=== PATIENT | male | born 1990 | race Two or more races ===

== ENCOUNTER 2018-09-04 17:26 | Emergency (ER) | payer OTHER ==
--- NOTE | 2018-09-04 17:36 | EDM.PDOC ---
ED HPI GENERAL MEDICAL PROBLEM - General Chief Complaint: Laceration Stated Complaint: LEFT MIDDLE FINGER CUT Time Seen by Provider: 09/04/18 17:35 Source of Information: Reports: Patient History Limitations: Reports: No Limitations - History of Present Illness INITIAL COMMENTS - FREE TEXT/NARRATIVE: HISTORY AND PHYSICAL: History of present illness: Patient is a 28-year-old male who presents to the emergency room with complaints of a laceration/avulsion of the distal tip of the left third digit. He states he was cutting meat when the knife had grazed the distal aspect of the fingertip. 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 His tetanus is up-to-date. Patient does speak Nauruan - does not require JONATHAN services. Review of systems: As per history of present illness and below otherwise all systems reviewed and negative. Past medical history: As per history of present illness and as reviewed below otherwise noncontributory. Surgical history: As per history of present illness and as reviewed below otherwise noncontributory. Social history: See social history for further information Family history: As per history of present illness and as reviewed below otherwise noncontributory. Physical exam: General: Well-developed and well-nourished 28-year-old male. Alert and oriented. Nontoxic appearing and in no acute distress. HEENT: Atraumatic, normocephalic, pupils equal and reactive bilaterally, negative for conjunctival pallor or scleral icterus, mucous membranes moist, TMs normal bilaterally, throat clear, neck supple, nontender, trachea midline. No drooling or trismus noted. No meningeal signs. No hot potato voice noted. Lungs: Clear to auscultation, breath sounds equal bilaterally, chest nontender. Heart: S1S2, regular rate and rhythm without overt murmur Abdomen: Soft, nondistended, nontender. Negative for masses or hepatosplenomegaly. Negative for costovertebral tenderness. Pelvis: Stable nontender. Genitourinary: Deferred. Rectal: Deferred. Skin: Distal tip of the left 3rd digit is avulsed (.75cm in diameter). This involves the upper 1/3 corner of the nail bed and soft tissue. No exposed bone noted. Bleeding controlled with pressure. Otherwise skin is intact, warm, dry. No lesions or rashes noted. Extremities: Moves all extremities per self with difficulty or deficits, negative for cords or calf pain. Neurovascular unremarkable. Neuro: Awake, alert, oriented. Cranial nerves II through XII unremarkable. Cerebellum unremarkable. Motor and sensory unremarkable throughout. Exam nonfocal. Notes: X-ray shows distal long finger soft tissue injury. Nondisplaced acute fracture of the distal phalanx tuft. 1% lidocaine was used to perform a digital block. Finger was thoroughly cleansed with chlorhexidine and wound wash. Pressure xoforam dressing applied with education. Patient instructed to call the hand surgeon on Thursday to set up a follow-up appointment. Supportive care measures were reviewed and discussed. Voices understanding and is agreeable to plan of care. Denies any further questions or concerns at this time. Diagnostics: X-ray Therapeutics: 1% Lidocaine Prescription: [place] Keflex Impression: Tuft Fracture, left third digit Skin Avulsion, left third digit Plan: 1. Take the antibiotic as directed. Keep the dressing you have on for the next 24-48 hours. Keep the area clean and dry. Continue to monitor for signs of infection. 2. Tylenol and/or ibuprofen as needed for pain management. [place] for moderate to severe pain. This medication may cause drowsiness a do not take it will driving her needing to be functioning outside of the house. 3. Please follow-up with your primary care provider or Hand Surgeon (Dr Corley) as we discussed. Return to the ED as needed and as discussed. Definitive disposition and diagnosis as appropriate pending reevaluation and review of above. Onset: Today Left Finger-Middle Pain Score (Numeric/FACES): 8 - Related Data Allergies Allergy/AdvReac Type Severity Reaction Status Date / Time No Known Allergies Allergy Verified 09/04/18 18:03 Home Meds: Home Meds . [No Known Home Meds] 09/04/18 [History] ED ROS GENERAL - Review of Systems Review Of Systems: ROS reveals no pertinent complaints other than HPI. ED EXAM, SKIN/RASH Exam: See Below (See dictation) Course - Vital Signs Last Recorded V/S: Last Vital Signs Temp 97.6 F 09/04/18 18:04 Pulse 88 09/04/18 18:04 Resp 17 09/04/18 18:04 BP 129/79 09/04/18 18:04 Pulse Ox 98 09/04/18 18:04 - Orders/Labs/Meds Meds: Medications Discontinued Medications Generic Name Dose Route Start Last Admin Trade Name Angela PRN Reason Stop Dose Admin Lidocaine HCl 5 ml 09/04/18 17:35 09/04/18 18:22 Xylocaine-Mpf 1% INJECT 09/04/18 17:36 5 ml ONETIME ONE Administration Departure - Departure Time of Disposition: 18:49 Disposition: Home, Self-Care 01 Clinical Impression: Avulsion fracture, Open fracture of tuft of distal phalanx of finger - Discharge Information Forms: ED Department Discharge Additional Instructions: The following information is given to patients seen in the emergency department who are being discharged to home. This information is to outline your options for follow-up care. We provide all patients seen in our emergency department with a follow-up referral. The need for follow-up, as well as the timing and circumstances, are variable depending upon the specifics of your emergency department visit. If you don't have a primary care physician on staff, we will provide you with a referral. We always advise you to contact your personal physician following an emergency department visit to inform them of the circumstance of the visit and for follow-up with them and/or the need for any referrals to a consulting specialist. The emergency department will also refer you to a specialist when appropriate. This referral assures that you have the opportunity for follow-up care with a specialist. All of these measure are taken in an effort to provide you with optimal care, which includes your follow-up. Under all circumstances we always encourage you to contact your private physician who remains a resource for coordinating your care. When calling for follow-up care, please make the office aware that this follow-up is from your recent emergency room visit. If for any reason you are refused follow-up, please contact the [facility] at and asked to speak to the emergency department charge nurse. [facility] [address] [place] [id number] [facility] [address] [place] [address] 1. Take the antibiotic as directed. Keep the dressing you have on for the next 24-48 hours. Keep the area clean and dry. Continue to monitor for signs of infection. 2. Tylenol and/or ibuprofen as needed for pain management. [place] for moderate to severe pain. This medication may cause drowsiness a do not take it will driving her needing to be functioning outside of the house. 3. Please follow-up with your primary care provider or Hand Surgeon (Dr Corley) as we discussed. Return to the ED as needed and as discussed.
--- NOTE | 2018-09-04 18:43 | CR ---
HISTORY: Caught 3rd digit. TECHNIQUE: Left hand 3 views. COMPARISON: None. FINDINGS: Nondisplaced acute oblique fracture of the tuft of the long finger distal phalanx. Contour deformity of the soft tissues in the distal long finger compatible with soft tissue injury. No radiopaque foreign body. Bones are otherwise intact. Joint spaces are maintained. IMPRESSION: Distal long finger soft tissue injury. Nondisplaced acute fracture of the long finger distal phalanx tuft. Dictated by James Bro MD @ Sep 04 2018 6:39PM Signed by Dr. James Bro @ Sep 04 2018 6:41PM
== END 2018-09-04 19:05 | disposition home or self-care (01) ==
LOC: MW.ED 17:26
DX: S62.632B Displaced fracture of distal phalanx of right middle finger, initial encounter for open fracture (principal); W26.0XXA Contact with knife, initial encounter
CPT/HCPCS: 64450; 73140; 99283; J2001

== ENCOUNTER 2019-07-04 23:52 | Observation (INO) | payer SELFPAY ==
[2019-07-05] MEDS ORDERED: Albuterol/Ipratropium 3.0-0.5 MG/3 ML Neb Soln NEB ONE ×2 (00:17→01:23)
[2019-07-05] MEDS ORDERED: methylPREDNISolone Sodium Succinate 125 MG/2 ML SDV IVPUSH ONE (00:17)
[2019-07-05] MEDS ORDERED: Sodium Chloride 0.9% 2.5 ML Syringe FLUSH PRN (00:17)
[2019-07-05] MEDS ORDERED: Ketorolac 30 MG/ML SDV IVPUSH ONE (00:17)
[2019-07-05] MEDS ORDERED: Sodium Chloride 0.9% 10 ML Syringe FLUSH PRN (00:17)
[2019-07-05] MEDS ORDERED: Sodium Chloride 0.9% 1,000 ML IV ONE (00:17)
[2019-07-05] MEDS ORDERED: Albuterol/Ipratropium 3.0-0.5 MG/3 ML Neb Soln ONE (00:18)
--- NOTE | 2019-07-05 00:25 | EDM.PDOC ---
ED HPI GENERAL MEDICAL PROBLEM - General Chief Complaint: Chest Pain Stated Complaint: HARD TIME BREATHING Time Seen by Provider: 07/05/19 00:16 - History of Present Illness INITIAL COMMENTS - FREE TEXT/NARRATIVE: HISTORY AND PHYSICAL: History of present illness: The patient is a 29-year-old male with no significant pulmonary or cardiac history who presents with 3 days of hacking dry cough occasionally productive of phlegm sore throat and trouble breathing. The patient does smoke but does not use any drugs and says he did not get his influenza shot this year. He has been eating and drinking but less today due to the trouble breathing and has not had any abdominal pain vomiting or diarrhea. He has not noted a fever at home. He has diffuse chest pain that is worse with coughing and a sore throat started after the coughing as well. The patient has not tried much over-the- counter. 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 He has no abdominal pain flank pain or urinary symptoms. Review of systems: As per history of present illness and below otherwise all systems reviewed and negative. Past medical history: As per history of present illness and as reviewed below otherwise noncontributory. Surgical history: As per history of present illness and as reviewed below otherwise noncontributory. Social history: No reported history of drug or alcohol abuse. Family history: As per history of present illness and as reviewed below otherwise noncontributory. Physical exam: Well-developed well-nourished mildly overweight man who has a dry hacking cough on my evaluation and is slightly breathless but is not hoarse or muffled. Vital signs are noted by me HEENT: Atraumatic, normocephalic, pupils reactive, negative for conjunctival pallor or scleral icterus, mucous membranes moist, throat clear of exudates and there is some slight oropharyngeal erythema, uvula is midline, there is no cervical adenopathy or nuchal rigidity, neck supple, nontender, trachea midline. Lungs: Diffuse expiratory wheezing and coarse breath sounds bilaterally with diminished air exchange in the bases and no overt work of breathing or abdominal muscle use, no stridor, breath sounds equal bilaterally, chest nontender. Heart: S1S2, regular, rhythm but tachycardic rate and no overt murmurs Abdomen: Soft, nondistended, nontender. Negative for masses or hepatosplenomegaly. Negative for costovertebral tenderness. Pelvis: Stable nontender. Genitourinary: Deferred. Rectal: Deferred. Extremities: Atraumatic, negative for cords or calf pain. Neurovascular unremarkable. No pedal edema or leg asymmetry Neuro: Awake, alert, oriented. Cranial nerves II through XII unremarkable. Cerebellum unremarkable. Motor and sensory unremarkable throughout. Exam nonfocal. Diagnostics: EKG chest x-ray influenza rapid strep CBC CMP lactic acid Therapeutics: IV O2 monitor IV fluids Solu-Medrol DuoNeb Toradol rocephin Zithromax Please note that the lactic acid machine has been having troubles and I have not currently received that test result. Lab has said that if they can get the machine working properly they will come and draw the patient. Dr. Hudson is aware of this and I have discussed the case with him at 1:14 AM. He is aware of my concerns and accepts the patient for admission. The patient is also aware of his testing results and the need for admission. Impression: Bronchospasm with hypoxia Definitive disposition and diagnosis as appropriate pending reevaluation and review of above. chest Pain Score (Numeric/FACES): 7 - Related Data Allergies Allergy/AdvReac Type Severity Reaction Status Date / Time No Known Allergies Allergy Verified 07/05/19 00:04 Home Meds: Home Meds . [No Known Home Meds] 09/04/18 [History] Past Medical History - Past Health History Medical/Surgical History: Denies Medical/Surgical History - Infectious Disease History Infectious Disease History: Reports: Mumps Social & Family History - Family History Family Medical History: Noncontributory - Tobacco Use Smoking Status *Q: Current Every Day Smoker Years of Tobacco use: 14 Packs/Tins Daily: 0.5 - Caffeine Use Caffeine Use: Reports: Energy Drinks - Recreational Drug Use Recreational Drug Use: No ED ROS GENERAL - Review of Systems Review Of Systems: Comprehensive ROS is negative, except as noted in HPI. ED EXAM, GENERAL - Physical Exam Exam: See Below (See dictation) Course - Vital Signs Last Recorded V/S: Last Vital Signs Temp 37.0 C 07/04/19 23:54 Pulse 113 H 07/04/19 23:54 Resp 20 07/04/19 23:54 BP 149/99 H 07/04/19 23:54 Pulse Ox 94 L 07/05/19 00:32 - Orders/Labs/Meds Orders: Active Orders 24 hr Category Date Time Status Patient Status [ADT] Stat ADT 07/05/19 01:18 Ordered Cardiac Monitoring [RC] . DIRECTED Care 07/05/19 00:17 Active EKG Documentation Completion [RC] STAT Care 07/05/19 00:17 Active Oxygen Therapy, ED [RC] ASDIRECTED Care 07/05/19 00:17 Active Pulse Oximetry [RC] ASDIRECTED Care 07/05/19 00:17 Active RT Aerosol Therapy [RC] ASDIRECTED Care 07/05/19 00:18 Active CULTURE STREP A CONFIRMATION [RM] Stat Lab 07/05/19 00:29 Results LACTATE WITH REFLEX [BG] Stat Lab 07/05/19 00:17 Ordered STREP SCRN A RAPID W CULT CONF [RM] Stat Lab 07/05/19 00:29 Results Sodium Chloride 0.9% [Saline Flush] Med 07/05/19 00:17 Active 10 ml FLUSH ASDIRECTED PRN Sodium Chloride 0.9% [Saline Flush] Med 07/05/19 00:17 Active 2.5 ml FLUSH ASDIRECTED PRN cefTRIAXone [Rocephin in Dextrose,Iso-Osm 2 GM/50 ML] 2 Med 07/05/19 01:04 Active gm Premix Bag 1 bag IV ONETIME Saline Lock Insert [OM.PC] Stat Oth 07/05/19 00:17 Ordered Medication Orders Ceftriaxone Sodium/Dextrose 2 (gm/ Premix) 50 mls @ 100 mls/hr IV ONETIME ONE Stop: 07/05/19 01:33 Sodium Chloride (Saline Flush) 10 ml FLUSH ASDIRECTED PRN PRN Reason: Keep Vein Open Sodium Chloride (Saline Flush) 2.5 ml FLUSH ASDIRECTED PRN PRN Reason: Keep Vein Open Labs: Laboratory Tests 07/04/19 07/04/19 Range/Units 23:58 23:58 WBC 16.77 H (4.0-11.0) K/uL RBC 5.75 (4.50-5.90) M/uL Hgb 17.3 H (13.0-17.0) g/dL Hct 49.3 (38.0-50.0) % MCV 85.7 (80.0-98.0) fL MCH 30.1 (27.0-32.0) pg MCHC 35.1 (31.0-37.0) g/dL RDW Std Deviation 40.9 (28.0-62.0) fl RDW Coeff of Yamilet 13 (11.0-15.0) % Plt Count 315 (150-400) K/uL MPV 9.50 (7.40-12.00) fL Neut % (Auto) 68.9 (48.0-80.0) % Lymph % (Auto) 19.9 (16.0-40.0) % Ross % (Auto) 4.9 (0.0-15.0) % Eos % (Auto) 6.1 (0.0-7.0) % Baso % (Auto) 0.2 (0.0-1.5) % Neut # (Auto) 11.6 H (1.4-5.7) K/uL Lymph # (Auto) 3.3 H (0.6-2.4) K/uL Ross # (Auto) 0.8 (0.0-0.8) K/uL Eos # (Auto) 1.0 H (0.0-0.7) K/uL Baso # (Auto) 0.0 (0.0-0.1) K/uL Nucleated RBC % 0.0 /100WBC Nucleated RBCs # 0 K/uL Sodium 144 (136-148) mmol/L Potassium 3.4 L (3.5-5.1) mmol/L Chloride 105 (98-107) mmol/L Carbon Dioxide 27.0 (21.0-32.0) mmol/L BUN 21 H (7.0-18.0) mg/dL Creatinine 0.9 (0.8-1.3) mg/dL Est Cr Clr Drug Dosing 120.70 mL/min Estimated GFR (MDRD) > 60.0 ml/min Glucose 109 H (74-106) mg/dL Calcium 9.0 (8.5-10.1) mg/dL Total Bilirubin 0.5 (0.2-1.0) mg/dL AST 21 (15-37) IU/L ALT 67 H (14-63) IU/L Alkaline Phosphatase 84 (46-116) U/L Total Protein 8.3 H (6.4-8.2) g/dL Albumin 4.2 (3.4-5.0) g/dL Globulin 4.1 H (2.6-4.0) g/dL Albumin/Globulin Ratio 1.0 (0.9-1.6) Meds: Medications Generic Name Dose Route Start Last Admin Trade Name Freq PRN Reason Stop Dose Admin Ceftriaxone Sodium/Dextrose 2 50 mls @ 100 mls/hr 07/05/19 01:04 gm/ Premix IV 07/05/19 01:33 ONETIME ONE Sodium Chloride 10 ml 07/05/19 00:17 Saline Flush FLUSH ASDIRECTED PRN Keep Vein Open Sodium Chloride 2.5 ml 07/05/19 00:17 Saline Flush FLUSH ASDIRECTED PRN Keep Vein Open Discontinued Medications Generic Name Dose Route Start Last Admin Trade Name Freq PRN Reason Stop Dose Admin Albuterol/Ipratropium 3 ml 07/05/19 00:17 07/05/19 00:21 Duoneb 3.0-0.5 Mg/3 Ml NEB 07/05/19 00:18 3 ml ONETIME ONE Administration Albuterol/Ipratropium Confirm 07/05/19 00:18 07/05/19 00:30 Duoneb 3.0-0.5 Mg/3 Ml Administered 07/05/19 00:19 Not Given Dose 3 ml .ROUTE .STK-MED ONE Azithromycin 500 mg 07/05/19 01:05 Zithromax PO 07/05/19 01:06 ONETIME ONE Sodium Chloride 1,000 mls @ 999 mls/hr 07/05/19 00:17 07/05/19 00:21 Normal Saline IV 07/05/19 01:17 999 mls/hr STAT ONE Administration Ketorolac Tromethamine 30 mg 07/05/19 00:17 07/05/19 00:26 Toradol IVPUSH 07/05/19 00:18 30 mg ONETIME ONE Administration Methylprednisolone Sodium Succinate 125 mg 07/05/19 00:17 07/05/19 00:26 Solu-Medrol IVPUSH 07/05/19 00:18 125 mg ONETIME ONE Administration Departure - Departure Time of Disposition: :20 Disposition: Refer to Observation Condition: Fair Clinical Impression: Bronchospasm, acute, Hypoxia - Discharge Information Referrals: PCP,Unknown [Primary Care Provider] - Forms: ED Department Discharge Sepsis Event Note - Evaluation Sepsis Screening Result: No Definite Risk - Focused Exam Vital Signs: Vital Signs Temp Pulse Resp BP Pulse Ox Pulse Ox 07/05/19 00:32 94 L 07/04/19 23:54 37.0 C 113 H 20 149/99 H 92 L Date Exam was Performed: 07/05/19 Time Exam was Performed: 01:19 - My Orders Last 24 Hours: My Active Orders 07/05/19 00:17 Cardiac Monitoring [RC] . DIRECTED EKG Documentation Completion [RC] STAT Oxygen Therapy, ED [RC] ASDIRECTED Pulse Oximetry [RC] ASDIRECTED LACTATE WITH REFLEX [BG] Stat Sodium Chloride 0.9% [Saline Flush] 10 ml FLUSH ASDIRECTED PRN Sodium Chloride 0.9% [Saline Flush] 2.5 ml FLUSH ASDIRECTED PRN Saline Lock Insert [OM.PC] Stat 07/05/19 00:18 RT Aerosol Therapy [RC] ASDIRECTED 07/05/19 00:29 CULTURE STREP A CONFIRMATION [RM] Stat STREP SCRN A RAPID W CULT CONF [RM] Stat 07/05/19 01:04 cefTRIAXone [Rocephin in Dextrose,Iso-Osm 2 GM/50 ML] 2 gm Premix Bag 1 bag IV ONETIME 07/05/19 01:18 Patient Status [ADT] Stat - Assessment/Plan Last 24 Hours: My Active Orders 07/05/19 00:17 Cardiac Monitoring [RC] . DIRECTED EKG Documentation Completion [RC] STAT Oxygen Therapy, ED [RC] ASDIRECTED Pulse Oximetry [RC] ASDIRECTED LACTATE WITH REFLEX [BG] Stat Sodium Chloride 0.9% [Saline Flush] 10 ml FLUSH ASDIRECTED PRN Sodium Chloride 0.9% [Saline Flush] 2.5 ml FLUSH ASDIRECTED PRN Saline Lock Insert [OM.PC] Stat 07/05/19 00:18 RT Aerosol Therapy [RC] ASDIRECTED 07/05/19 00:29 CULTURE STREP A CONFIRMATION [RM] Stat STREP SCRN A RAPID W CULT CONF [RM] Stat 07/05/19 01:04 cefTRIAXone [Rocephin in Dextrose,Iso-Osm 2 GM/50 ML] 2 gm Premix Bag 1 bag IV ONETIME 07/05/19 01:18 Patient Status [ADT] Stat
--- NOTE | 2019-07-05 01:00 | CR ---
INDICATION: chest pain. CHEST, PA AND LATERAL Upright PA and lateral radiographs of the chest were performed. Comparison: No previous studies are currently available for comparison. The lungs appear clear and there are no pleural effusions. Heart size and pulmonary vasculature appear normal. Visualized bones show no significant findings. IMPRESSION: No acute intrathoracic abnormality identified. DENISE MUNOZ MD [facility] Dictated by: Fede Munoz MD @ 07/05/2019 00:58:49 (Electronically Signed)
[2019-07-05 01:01] LABS: BLOOD UREA NITROGEN,BUN 21 mg/dL (7.0-18.0); CHLORIDE,CL 105 mmol/L (98-107); GLUCOSE RANDOM 109 mg/dL (74-106); POTASSIUM,K 3.4 mmol/L (3.5-5.1); SODIUM,NA 144 mmol/L (136-148)
[2019-07-05] MEDS ORDERED: cefTRIAXone 2 GM in Premix Bag 1 BAG IV ONE (01:04)
[2019-07-05] MEDS ORDERED: Azithromycin 250 MG Tab PO ONE (01:05)
[2019-07-05] MEDS ORDERED: Albuterol/Ipratropium 3.0-0.5 MG/3 ML Neb Soln NEB PRN (03:59)
[2019-07-05 07:05] LABS: BLOOD UREA NITROGEN,BUN 19 mg/dL (7.0-18.0); CARBON DIOXIDE,CO2 25.2 mmol/L (21.0-32.0); CHLORIDE,CL 106 mmol/L (98-107); GLUCOSE RANDOM 150 mg/dL (74-106); POTASSIUM,K 4.6 mmol/L (3.5-5.1); SODIUM,NA 142 mmol/L (136-148)
[2019-07-05] MEDS ORDERED: predniSONE 20 MG Tab PO SCH (08:00)
--- NOTE | 2019-07-05 09:08 | PCM.HP.2 ---
H&P History of Present Illness - General Date of Service: 07/05/19 Admit Problem/Dx: Admission Diagnosis/Problem Admission Diagnosis/Problem Bronchospasm - History of Present Illness Initial Comments - Free Text/Narative: THe patient is a 29 year old male who denies PMH who presented to the ER with several day history of dry cough, sore throat, shortness of breath. He reports intermittently the cough is productive. Feels like his congestion is draining down the back of his throat and he is coughing that up. Chest hurts with coughing. Subjective fevers at home. Taking ibuprofen at home. Denies hx of asthma. Smokes 2 cigarettes a day but denies vaping. In the ER, work up showed leukocytosis of 16, lactate wnl, CMP wnl, flu negative , strep negative, CXR negative. No documented hypoxia in chart but placed on 2 L of oxygen in the ER. Given Duonebs, solumedrol, Rocephin, Azithromycin, and Toradol. This morning states he feels a little better, congestion clearing up and it is easier for him to breath. Was weaned off oxygen and satting well on room air. PCP- none chest Pain Score (Numeric/FACES): 2 - Related Data Allergies/Adverse Reactions: Allergies Allergy/AdvReac Type Severity Reaction Status Date / Time No Known Allergies Allergy Verified 07/05/19 06:25 Home Medications: Home Meds . [No Known Home Meds] 09/04/18 [History] Past Medical History - Past Health History Medical/Surgical History: Denies Medical/Surgical History - Infectious Disease History Infectious Disease History: Reports: Mumps Social & Family History - Family History Family Medical History: Noncontributory - Tobacco Use Smoking Status *Q: Current Some Day Smoker Years of Tobacco use: 10 Packs/Tins Daily: 0 Tobacco Use Comment: only smokes a couple cigarettes socially, not every day or even every week Second Hand Smoke Exposure: No - Caffeine Use Caffeine Use: Reports: Coffee - Alcohol Use Days Per Week of Alcohol Use: 0 - Recreational Drug Use Recreational Drug Use: No H&P Review of Systems - Review of Systems: Review Of Systems: See Below General: Reports: Fever HEENT: Reports: Post Nasal Drip, Sinus Congestion, Sore Throat Pulmonary: Reports: Shortness of Breath, Cough Cardiovascular: Reports: Chest Pain (with coughing) Gastrointestinal: Reports: No Symptoms Genitourinary: Reports: No Symptoms Musculoskeletal: Reports: No Symptoms Skin: Reports: No Symptoms Psychiatric: Reports: No Symptoms Neurological: Reports: No Symptoms Hematologic/Lymphatic: Reports: No Symptoms Immunologic: Reports: No Symptoms Exam - Exam Exam: See Below - Vital Signs Vital Signs: Last Vital Signs Temp 97.3 F 07/05/19 07:29 Pulse 77 07/05/19 07:29 Resp 18 07/05/19 07:29 BP 121/58 L 07/05/19 07:29 Pulse Ox 95 07/05/19 07:29 Weight: 98.883 kg - Exam Quality Assessment: No: Supplemental Oxygen General: Alert, Oriented, Cooperative HEENT: Conjunctiva Clear, EOMI, Mucosa Moist & [place], Posterior Pharynx Clear, Pupils Equal, Pupils Reactive Lungs: Normal Respiratory Effort, Wheezing Cardiovascular: Regular Rate, Regular Rhythm GI/Abdominal Exam: Normal Bowel Sounds, Soft, Non-Tender, No Distention Extremities: No Pedal Edema Skin: Warm, Dry, Intact Psychiatric: Alert, Normal Affect, Normal Mood - Patient Data Lab Results Last 24 hrs: Laboratory Results - last 24 hr 07/04/19 07/04/19 07/05/19 Range/Units 23:58 23:58 01:21 WBC 16.77 H (4.0-11.0) K/uL RBC 5.75 (4.50-5.90) M/uL Hgb 17.3 H (13.0-17.0) g/dL Hct 49.3 (38.0-50.0) % MCV 85.7 (80.0-98.0) fL MCH 30.1 (27.0-32.0) pg MCHC 35.1 (31.0-37.0) g/dL RDW Std Deviation 40.9 (28.0-62.0) fl RDW Coeff of [place]ilet 13 (11.0-15.0) % Plt Count 315 (150-400) K/uL MPV 9.50 (7.40-12.00) fL Neut % (Auto) 68.9 (48.0-80.0) % Lymph % (Auto) 19.9 (16.0-40.0) % [place] % (Auto) 4.9 (0.0-15.0) % Eos % (Auto) 6.1 (0.0-7.0) % Baso % (Auto) 0.2 (0.0-1.5) % Neut # (Auto) 11.6 H (1.4-5.7) K/uL Lymph # (Auto) 3.3 H (0.6-2.4) K/uL [place] # (Auto) 0.8 (0.0-0.8) K/uL Eos # (Auto) 1.0 H (0.0-0.7) K/uL Baso # (Auto) 0.0 (0.0-0.1) K/uL Nucleated RBC % 0.0 /100WBC Nucleated RBCs # 0 K/uL Lactate 1.2 (0.20-2.00) mmol/L Sodium 144 (136-148) mmol/L Potassium 3.4 L (3.5-5.1) mmol/L Chloride 105 (98-107) mmol/L Carbon Dioxide 27.0 (21.0-32.0) mmol/L BUN 21 H (7.0-18.0) mg/dL Creatinine 0.9 (0.8-1.3) mg/dL Est Cr Clr Drug Dosing 120.70 mL/min Estimated GFR (MDRD) > 60.0 ml/min Glucose 109 H (74-106) mg/dL Calcium 9.0 (8.5-10.1) mg/dL Total Bilirubin 0.5 (0.2-1.0) mg/dL AST 21 (15-37) IU/L ALT 67 H (14-63) IU/L Alkaline Phosphatase 84 (46-116) U/L Total Protein 8.3 H (6.4-8.2) g/dL Albumin 4.2 (3.4-5.0) g/dL Globulin 4.1 H (2.6-4.0) g/dL Albumin/Globulin Ratio 1.0 (0.9-1.6) 07/05/19 07/05/19 Range/Units 06:27 06:27 WBC 14.30 H (4.0-11.0) K/uL RBC 5.33 (4.50-5.90) M/uL Hgb 15.6 (13.0-17.0) g/dL Hct 45.8 (38.0-50.0) % MCV 85.9 (80.0-98.0) fL MCH 29.3 (27.0-32.0) pg MCHC 34.1 (31.0-37.0) g/dL RDW Std Deviation 40.9 (28.0-62.0) fl RDW Coeff of Yamilet 13 (11.0-15.0) % Plt Count 304 (150-400) K/uL MPV 9.70 (7.40-12.00) fL Neut % (Auto) 93.8 H (48.0-80.0) % Lymph % (Auto) 5.0 L (16.0-40.0) % [place] % (Auto) 1.0 (0.0-15.0) % Eos % (Auto) 0.1 (0.0-7.0) % Baso % (Auto) 0.1 (0.0-1.5) % Neut # (Auto) 13.4 H (1.4-5.7) K/uL Lymph # (Auto) 0.7 (0.6-2.4) K/uL [place] # (Auto) 0.1 (0.0-0.8) K/uL Eos # (Auto) 0.0 (0.0-0.7) K/uL Baso # (Auto) 0.0 (0.0-0.1) K/uL Nucleated RBC % 0.0 /100WBC Nucleated RBCs # 0 K/uL Lactate (0.20-2.00) mmol/L Sodium 142 (136-148) mmol/L Potassium 4.6 (3.5-5.1) mmol/L Chloride 106 (98-107) mmol/L Carbon Dioxide 25.2 (21.0-32.0) mmol/L BUN 19 H (7.0-18.0) mg/dL Creatinine 0.9 (0.8-1.3) mg/dL Est Cr Clr Drug Dosing 121.11 mL/min Estimated GFR (MDRD) > 60.0 ml/min Glucose 150 H (74-106) mg/dL Calcium 9.0 (8.5-10.1) mg/dL Total Bilirubin (0.2-1.0) mg/dL AST (15-37) IU/L ALT (14-63) IU/L Alkaline Phosphatase (46-116) U/L Total Protein (6.4-8.2) g/dL Albumin (3.4-5.0) g/dL Globulin (2.6-4.0) g/dL Albumin/Globulin Ratio (0.9-1.6) Result Diagrams: 07/05/19 06:27 07/05/19 06:27 Robbin Results Last 24 hrs: Microbiology 07/05/19 00:29 Influenza Type A Antigen Screen - Final Nasopharyngeal Swab NEGATIVE INFLUENZA A VIRUS AG REFERENCE RANGE: NEGATIVE Influenza Type B Antigen Screen - Final NEGATIVE INFLUENZA B VIRUS AG REFERENCE RANGE: NEGATIVE 07/05/19 00:29 Group A Streptococcus Rapid Screen - Final Throat NEGATIVE STREP A SCREEN REFERENCE RANGE: NEGATIVE Sepsis Event Note - Evaluation Sepsis Screening Result: No Definite Risk - Focused Exam Vital Signs: Vital Signs Temp Temp Pulse Resp BP Pulse Ox Pulse Ox 07/05/19 07:29 97.3 F 77 18 121/58 L 95 07/05/19 03:57 97 07/05/19 03:45 96.6 F 79 16 118/73 97 07/05/19 03:14 98.1 F 80 18 107/62 93 L 07/05/19 02:46 82 16 93 L 07/05/19 02:05 91 18 127/78 93 L 07/05/19 01:52 109 H 22 H 119/80 94 L 07/05/19 01:00 110 H 24 H 121/78 95 07/05/19 00:32 07/04/19 23:54 98.6 F 113 H 20 149/99 H 92 L Pulse Ox 07/05/19 07:29 07/05/19 03:57 07/05/19 03:45 07/05/19 03:14 07/05/19 02:46 07/05/19 02:05 07/05/19 01:52 07/05/19 01:00 07/05/19 00:32 94 L 07/04/19 23:54 Date Exam was Performed: 07/05/19 Time Exam was Performed: 10:32 Problem List Initiated/Reviewed/Updated: Yes Orders Last 24hrs: Active Orders 24 hr Category Date Time Status Patient Status [ADT] Stat ADT 07/05/19 01:18 Active Antiembolic Devices [RC] PER UNIT ROUTINE Care 07/05/19 04:00 Active Cardiac Monitoring [RC] . DIRECTED Care 07/05/19 00:17 Active Oxygen Therapy [RC] PRN Care 07/05/19 03:57 Active RT Aerosol Therapy [RC] ASDIRECTED Care 07/05/19 04:00 Active VTE/DVT Education [RC] PER UNIT ROUTINE Care 07/05/19 03:57 Active Vital Signs [RC] Q4H Care 07/05/19 03:57 Active Regular Diet [DIET] Diet 07/05/19 Breakfast Active CULTURE STREP A CONFIRMATION [] Stat Lab 07/05/19 00:29 Results STREP SCRN A RAPID W CULT CONF [] Stat Lab 07/05/19 00:29 Results Albuterol/Ipratropium [DuoNeb 3.0-0.5 MG/3 ML] Med 07/05/19 03:59 Active 3 ml NEB Q4HRRT PRN Sodium Chloride 0.9% [Saline Flush] Med 07/05/19 00:17 Active 10 ml FLUSH ASDIRECTED PRN Sodium Chloride 0.9% [Saline Flush] Med 07/05/19 00:17 Active 2.5 ml FLUSH ASDIRECTED PRN predniSONE Med 07/05/19 08:00 Active 40 mg PO WITHBREAKFAST Saline Lock Insert [OM.PC] Stat Oth 07/05/19 00:17 Ordered Sequential Compression Device [OM.PC] Per Unit Routine Oth 07/05/19 04:00 Ordered Resuscitation Status Routine Resus Stat 07/05/19 03:57 Ordered Medication Orders Albuterol/Ipratropium (Duoneb 3.0-0.5 Mg/3 Ml) 3 ml NEB Q4HRRT PRN PRN Reason: Shortness Of Breath/wheezing Prednisone (Prednisone) 40 mg PO WITHBREAKFAST [place] Last Admin: 07/05/19 08:45 Dose: 40 mg Sodium Chloride (Saline Flush) 10 ml FLUSH ASDIRECTED PRN PRN Reason: Keep Vein Open Sodium Chloride (Saline Flush) 2.5 ml FLUSH ASDIRECTED PRN PRN Reason: Keep Vein Open Assessment/Plan Comment:: 1. Admit for observation 2. Code status- Full 3. Vitals per routine 4. I/Os per routine 5. Diet- regular 6. DVT prophylaxis with SCDs 7. Acute bronchitis- no longer requiring oxygen. Continue oral prednisone, duonebs, and Azithromycin. The patient was admitted overnight, weaned off oxygen and doing much better. By day of discharge, he felt better and said he was feeling better. Will discharge on three new short term medications, prednisone, albuterol inhaler, and Azithromycin. Will get him set up with PCP, they may need to do PFTs as an outpatient, once patient is over current illness to evaluate for asthma. Patient can continue regular diet as tolerated, activity as tolerated, take medications as prescribed. Symptoms to report to physician include fever/chills , chest pain, shortness of breath, abdominal pain, erythema, drainage/discharge , or not improving as expected.
== END 2019-07-05 11:40 | disposition home or self-care (01) ==
LOC: MW.ED 23:52 → MW.MS 07-05 01:18
PROVIDERS: ADMIT Internal Medicine; ATTEND Internal Medicine
DX: J20.9 Acute bronchitis, unspecified (principal); F17.210 Nicotine dependence, cigarettes, uncomplicated
CPT/HCPCS: 36415; 71046; 80048; 80053; 83605; 85025; 87081; 87804; 87880; 93005; 94640; A9270; J0696; J1885; J2930; J7030; 96361; 96365; 96375; 99285-25; G0378; J7620-GY

== ENCOUNTER 2020-07-02 17:54 | Emergency (ER) | payer SELFPAY ==
[2020-07-02] MEDS ORDERED: Albuterol/Ipratropium 3.0-0.5 MG/3 ML Neb Soln NEB ONE ×2 (18:05→19:21)
[2020-07-02] MEDS ORDERED: predniSONE 20 MG Tab PO ONE (18:05)
[2020-07-02] MEDS ORDERED: Acetaminophen 500 MG Tab PO ONE (18:42)
--- NOTE | 2020-07-02 18:42 | CR ---
INDICATION: cough and SOB TECHNIQUE: Chest 1 view. COMPARISON: None. FINDINGS: Cardiovascular and mediastinum: Heart size and vasculature are normal in caliber and appearance. Mediastinum is within normal limits. Lungs and pleural space: Lungs are clear. No sign of infiltrate or mass. No sign of pleural effusion. No pneumothorax. Bones and soft tissues: No significant findings. IMPRESSION: Unremarkable chest. Dictated by: Anthony Taylor MD @ 07/02/2020 18:41:24 (Electronically Signed)
[2020-07-02] MEDS ORDERED: Sodium Chloride 0.9% 1,000 ML IV SCH (18:45)
[2020-07-02 19:29] LABS: BLOOD UREA NITROGEN,BUN 16 mg/dL (7.0-18.0); CARBON DIOXIDE,CO2 21.8 mmol/L (21.0-32.0); CHLORIDE,CL 105 mmol/L (98-107); GLUCOSE RANDOM 106 mg/dL (74-106); POTASSIUM,K 3.7 mmol/L (3.5-5.1); SODIUM,NA 141 mmol/L (136-148)
--- NOTE | 2020-07-02 20:58 | EDM.PDOC ---
ED HPI GENERAL MEDICAL PROBLEM - General Chief Complaint: Respiratory Problem Stated Complaint: ASTHMA, DIFFICULTY BREATHING, BACK PAIN Time Seen by Provider: 07/02/20 17:59 - History of Present Illness INITIAL COMMENTS - FREE TEXT/NARRATIVE: Patient was signed out to me by Dr. Canas pending reevaluation at 7PM I did reevaluate the patient and the patient had normal vital signs with good oxygenation. His heart rate had improved. After 1 treatment the patient still had continued wheezing therefore we will provide the patient with an additional DuoNeb treatment. Labs reviewed CBC revealed a leukocytosis of 22.31 with normal indices. No segmented neutrophils or left shift. BMP is unremarkable. Troponin is negative Imaging reviewed chest x-ray did not reveal any acute cardiopulmonary process. On reevaluation after second DuoNeb treatment the patient's lung sounds cleared and had good air movement. I did discuss with him at this time that I did provide him with an albuterol inhaler and the need to use it every 4 hours as needed for wheezing. I discussed that I did write a prescription for prednisone need to take 1 tablet every day for 5 days. I discussed the importance of follow-up with primary care physician. He was amenable to discharge at this time and had no further questions DISPOSITION: The patient was discharged home in stable condition. The patient will follow up with PCP within 2 to 3 days CONDITION: As fair PROCEDURES: None FINAL IMPRESSION(S)/DIAGNOSES: 1. Acute asthma exacerbation Ge Wang M.D. - Related Data Allergies Allergy/AdvReac Type Severity Reaction Status Date / Time No Known Allergies Allergy Verified 07/02/20 17:58 Home Meds: Home Meds Albuterol [Ventolin HFA] 2 puff IH Q4HR PRN 5 Days #1 inhaler 07/05/19 [Rx] Albuterol [Ventolin HFA] 2 puff INH Q4H #1 puff 07/02/20 [Rx] predniSONE [Prednisone] 50 mg PO DAILY #5 tablet 07/02/20 [Rx] Past Medical History - Past Health History Medical/Surgical History: Denies Medical/Surgical History Respiratory History: Reports: Asthma - Infectious Disease History Infectious Disease History: Reports: Mumps Social & Family History - Family History Family Medical History: No Pertinent Family History - Tobacco Use Tobacco Use Status *Q: Former Tobacco User Used Tobacco, but Quit: Yes Month/Year Tobacco Last Used: 2020 - Caffeine Use Caffeine Use: Reports: None - Recreational Drug Use Recreational Drug Use: No ED ROS GENERAL - Review of Systems Review Of Systems: See Below ED EXAM, GENERAL - Physical Exam Exam: See Below Course - Vital Signs Last Recorded V/S: Last Vital Signs Temp 36.7 C 07/02/20 21:20 Pulse 95 07/02/20 21:20 Resp 18 07/02/20 21:20 BP 107/67 07/02/20 21:20 Pulse Ox 99 07/02/20 21:20 - Orders/Labs/Meds Labs: Laboratory Tests 07/02/20 07/02/20 Range/Units 18:58 18:58 WBC 22.31 H (4.0-11.0) K/uL RBC 5.54 (4.50-5.90) M/uL Hgb 16.6 (13.0-17.0) g/dL Hct 48.6 (38.0-50.0) % MCV 87.7 (80.0-98.0) fL MCH 30.0 (27.0-32.0) pg MCHC 34.2 (31.0-37.0) g/dL RDW Std Deviation 43.0 (28.0-62.0) fl RDW Coeff of [place]ile[place] 13 (11.0-15.0) % Plt Count 298 (150-400) K/uL MPV 9.60 (7.40-12.00) fL Neut % (Auto) 72.9 (48.0-80.0) % Lymph % (Auto) 16.3 (16.0-40.0) % [place] % (Auto) 6.7 (0.0-15.0) % Eos % (Auto) 3.8 (0.0-7.0) % Baso % (Auto) 0.3 (0.0-1.5) % Neut # (Auto) 16.3 H (1.4-5.7) K/uL Lymph # (Auto) 3.6 H (0.6-2.4) K/uL [place] # (Auto) 1.5 H (0.0-0.8) K/uL Eos # (Auto) 0.8 H (0.0-0.7) K/uL Baso # (Auto) 0.1 (0.0-0.1) K/uL Nucleated RBC % 0.0 /100WBC Nucleated RBCs # 0 K/uL Sodium 141 (136-148) mmol/L Potassium 3.7 (3.5-5.1) mmol/L Chloride 105 (98-107) mmol/L Carbon Dioxide 21.8 (21.0-32.0) mmol/L BUN 16 (7.0-18.0) mg/dL Creatinine 1.0 (0.8-1.3) mg/dL Est Cr Clr Drug Dosing 115.04 mL/min Estimated GFR (MDRD) > 60.0 ml/min Glucose 106 (74-106) mg/dL Calcium 9.9 (8.5-10.1) mg/dL Creatine Kinase 201 (26-308) U/L Troponin I < 0.050 (0.000-0.056) ng/mL Meds: Medications Discontinued Medications Generic Name Dose Route Start Last Admin Trade Name Freq PRN Reason Stop Dose Admin Acetaminophen 1,000 mg 07/02/20 18:42 07/02/20 18:50 Tylenol Extra Strength PO 07/02/20 18:43 1,000 mg ONETIME ONE Administration Albuterol 8 gm 07/02/20 21:00 07/02/20 21:18 Ventolin Hfa INH Not Given Q4H [place] Albuterol Confirm 07/02/20 21:07 07/02/20 21:17 Ventolin Hfa Administered 07/02/20 21:08 2 inh Dose Administration 8 gm INH .STK-MED ONE Albuterol/Ipratropium 3 ml 07/02/20 18:05 07/02/20 18:22 Duoneb 3.0-0.5 Mg/3 Ml NEB 07/02/20 18:06 3 ml ONETIME ONE Administration Albuterol/Ipratropium 3 ml 07/02/20 19:21 07/02/20 19:34 Duoneb 3.0-0.5 Mg/3 Ml NEB 07/02/20 19:22 3 ml ONETIME ONE Administration Sodium Chloride 1,000 mls @ 1,000 mls/hr 07/02/20 18:45 07/02/20 18:50 Normal Saline IV 1,000 mls/hr ASDIRECTED [place] Administration Prednisone 60 mg 07/02/20 18:05 07/02/20 18:29 Prednisone PO 07/02/20 18:06 60 mg ONETIME ONE Administration Departure - Departure Time of Disposition: 20:57 Disposition: Home, Self-Care 01 Condition: Fair Clinical Impression: Acute asthma - Discharge Information *PRESCRIPTION DRUG MONITORING PROGRAM REVIEWED*: No *COPY OF PRESCRIPTION DRUG MONITORING REPORT IN PATIENT JAVID: No Prescriptions: predniSONE [Prednisone] 50 mg PO DAILY #5 tablet Albuterol [Ventolin HFA] 2 puff INH Q4H #1 puff Instructions: Asthma, Adult Referrals: PCP,None [Primary Care Provider] - Forms: ED Department Discharge Additional Instructions: Your evaluated today on an emergent basis. You did experience an asthma exacerbation. I do recommend close follow-up with your primary care physician for continued management of your asthma. I did prescribe you an albuterol inhaler which should be used 2 puffs every 4 hours as needed for wheezing or shortness of breath. I also sent a prescription for prednisone and you should take 1 tablet of this each day for 5 days. In regards to nasal congestion I do recommend Flonase which can be purchased [id number]. Please use 2 puffs of Flonase twice a day. This medication does not work and last use it every day therefore please continue using this. If you have any new or worsening symptoms such as worsening shortness of breath or wheezing please return to the emergency department. [facility] [address] [place] [address] [place] [id number] The patient is informed of any results of their evaluation and diagnostic workup and all questions are answered. They are given discharge instructions and return precautions. The patient is stable for discharge. The patient states they understand and agree with the plan and that they will return if their symptoms get worse or if they have any new concerns. The following information is given to patients seen in the emergency department who are being discharged to home. This information is to outline your options for follow-up care. We provide all patients seen in our emergency department with a follow-up referral. The need for follow-up, as well as the timing and circumstances, are variable depending upon the specifics of your emergency department visit. If you don't have a primary care physician on staff, we will provide you with a referral. We always advise you to contact your personal physician following an emergency department visit to inform them of the circumstance of the visit and for follow-up with them and/or the need for any referrals to a consulting specialist. The emergency department will also refer you to a specialist when appropriate. This referral assures that you have the opportunity for follow-up care with a specialist. All of these measure are taken in an effort to provide you with opti mal care, which includes your follow-up. Under all circumstances we always encourage you to contact your private physician who remains a resource for coordinating your care. When calling for follow-up care, please make the office aware that this follow-up is from your recent emergency room visit. If for any reason you are refused follow-up, please contact the [facility] Emergency Department at and asked to speak to the emergency department charge nurse. Sepsis Event Note (ED) - Evaluation Sepsis Screening Result: No Definite Risk
[2020-07-02] MEDS ORDERED: Albuterol HFA 18 Gm Inhaler INH SCH (21:00)
[2020-07-02] MEDS ORDERED: Albuterol 8 GM Inhaler INH ONE (21:07)
--- NOTE | 2020-07-23 13:42 | EDM.PDOC ---
ED HPI GENERAL MEDICAL PROBLEM - General Chief Complaint: Respiratory Problem Stated Complaint: ASTHMA, DIFFICULTY BREATHING, BACK PAIN Time Seen by Provider: 07/02/20 17:59 Source of Information: Reports: Patient History Limitations: Reports: No Limitations - History of Present Illness INITIAL COMMENTS - FREE TEXT/NARRATIVE: 30-year-old male who presents today for shortness of breath for the past few days. Patient dates he is out of his inhaler. On exam patient has diffuse wheezing denies any chest pain nausea vomiting fevers chills. Patient was signed out to me by Dr. Canas pending reevaluation at 7PM I did reevaluate the patient and the patient had normal vital signs with good oxygenation. His heart rate had improved. After 1 treatment the patient still had continued wheezing therefore we will provide the patient with an additional DuoNeb treatment. Labs reviewed CBC revealed a leukocytosis of 22.31 with normal indices. No segmented neutrophils or left shift. BMP is unremarkable. Troponin is negative Imaging reviewed chest x-ray did not reveal any acute cardiopulmonary process. On reevaluation after second DuoNeb treatment the patient's lung sounds cleared and had good air movement. I did discuss with him at this time that I did provide him with an albuterol inhaler and the need to use it every 4 hours as needed for wheezing. I discussed that I did write a prescription for prednisone need to take 1 tablet every day for 5 days. I discussed the importance of follow-up with primary care physician. He was amenable to discharge at this time and had no further questions DISPOSITION: The patient was discharged home in stable condition. The patient will follow up with PCP within 2 to 3 days CONDITION: As fair PROCEDURES: None FINAL IMPRESSION(S)/DIAGNOSES: 1. Acute asthma exacerbation Ge Wang M.D. - Related Data Allergies Allergy/AdvReac Type Severity Reaction Status Date / Time No Known Allergies Allergy Verified 07/20/20 23:58 Home Meds: Home Meds Albuterol [Ventolin HFA] 2 puff IH Q4HR PRN 5 Days #1 inhaler 07/05/19 [Rx] Albuterol [Ventolin HFA] 2 puff INH Q4H #1 puff 07/02/20 [Rx] Albuterol Sulfate [Albuterol Sulfate HFA] 8.5 gm INH Q6H PRN #1 inhaler 07/21/20 [Rx] Azithromycin [Zithromax] 250 mg PO DAILY #4 tablet 07/21/20 [Rx] Cefdinir 300 mg PO Q12HR #20 capsule 07/21/20 [Rx] Codeine/Promethazine [Phenergan with Codeine] 5 ml PO Q6HR PRN #120 ml 07/21/20 [Rx] Ibuprofen 600 mg PO Q6HR PRN #30 tablet 07/21/20 [Rx] predniSONE [Prednisone] 50 mg PO DAILY #5 tablet 07/21/20 [Rx] Past Medical History - Past Health History Medical/Surgical History: Denies Medical/Surgical History Respiratory History: Reports: Asthma - Infectious Disease History Infectious Disease History: Reports: Mumps Social & Family History - Family History Family Medical History: No Pertinent Family History - Tobacco Use Tobacco Use Status *Q: Former Tobacco User Used Tobacco, but Quit: Yes Month/Year Tobacco Last Used: 2019 - Caffeine Use Caffeine Use: Reports: None - Recreational Drug Use Recreational Drug Use: No ED ROS GENERAL - Review of Systems Review Of Systems: See Below Constitutional: Reports: No Symptoms HEENT: Reports: No Symptoms Respiratory: Reports: Shortness of Breath, Wheezing Cardiovascular: Reports: No Symptoms Endocrine: Reports: No Symptoms GI/Abdominal: Reports: No Symptoms : Reports: No Symptoms Musculoskeletal: Reports: No Symptoms Skin: Reports: No Symptoms Neurological: Reports: No Symptoms Psychiatric: Reports: No Symptoms Hematologic/Lymphatic: Reports: No Symptoms Immunologic: Reports: No Symptoms ED EXAM, GENERAL - Physical Exam Exam: See Below Free Text/Narrative:: Patient was signed out to me by Dr. Canas pending reevaluation at 7PM I did reevaluate the patient and the patient had normal vital signs with good oxygenation. His heart rate had improved. After 1 treatment the patient still had continued wheezing therefore we will provide the patient with an additional DuoNeb treatment. Labs reviewed CBC revealed a leukocytosis of 22.31 with normal indices. No segmented neutrophils or left shift. BMP is unremarkable. Troponin is negative Imaging reviewed chest x-ray did not reveal any acute cardiopulmonary process. On reevaluation after second DuoNeb treatment the patient's lung sounds cleared and had good air movement. I did discuss with him at this time that I did provide him with an albuterol inhaler and the need to use it every 4 hours as needed for wheezing. I discussed that I did write a prescription for prednisone need to take 1 tablet every day for 5 days. I discussed the importance of follow-up with primary care physician. He was amenable to discharge at this time and had no further questions DISPOSITION: The patient was discharged home in stable condition. The patient will follow up with PCP within 2 to 3 days CONDITION: As fair PROCEDURES: None FINAL IMPRESSION(S)/DIAGNOSES: 1. Acute asthma exacerbation Ge Wang M.D. Exam Limited By: No Limitations General Appearance: Alert, WD/WN Respiratory/Chest: Wheezing Cardiovascular: Normal Peripheral Pulses GI/Abdominal: Normal Bowel Sounds, Soft, Non-Tender Extremities: Normal Inspection Neurological: Alert, Oriented Course - Vital Signs Last Recorded V/S: Last Vital Signs Temp 98.1 F 07/02/20 21:20 Pulse 95 07/02/20 21:20 Resp 18 07/02/20 21:20 BP 107/67 07/02/20 21:20 Pulse Ox 99 07/02/20 21:20 - Orders/Labs/Meds Labs: Laboratory Tests 07/02/20 07/02/20 Range/Units 18:58 18:58 WBC 22.31 H (4.0-11.0) K/uL RBC 5.54 (4.50-5.90) M/uL Hgb 16.6 (13.0-17.0) g/dL Hct 48.6 (38.0-50.0) % MCV 87.7 (80.0-98.0) fL MCH 30.0 (27.0-32.0) pg MCHC 34.2 (31.0-37.0) g/dL RDW Std Deviation 43.0 (28.0-62.0) fl RDW Coeff of Yamilet 13 (11.0-15.0) % Plt Count 298 (150-400) K/uL MPV 9.60 (7.40-12.00) fL Neut % (Auto) 72.9 (48.0-80.0) % Lymph % (Auto) 16.3 (16.0-40.0) % Placer % (Auto) 6.7 (0.0-15.0) % Eos % (Auto) 3.8 (0.0-7.0) % Baso % (Auto) 0.3 (0.0-1.5) % Neut # (Auto) 16.3 H (1.4-5.7) K/uL Lymph # (Auto) 3.6 H (0.6-2.4) K/uL Placer # (Auto) 1.5 H (0.0-0.8) K/uL Eos # (Auto) 0.8 H (0.0-0.7) K/uL Baso # (Auto) 0.1 (0.0-0.1) K/uL Nucleated RBC % 0.0 /100WBC Nucleated RBCs # 0 K/uL Sodium 141 (136-148) mmol/L Potassium 3.7 (3.5-5.1) mmol/L Chloride 105 (98-107) mmol/L Carbon Dioxide 21.8 (21.0-32.0) mmol/L BUN 16 (7.0-18.0) mg/dL Creatinine 1.0 (0.8-1.3) mg/dL Est Cr Clr Drug Dosing 115.04 mL/min Estimated GFR (MDRD) > 60.0 ml/min Glucose 106 (74-106) mg/dL Calcium 9.9 (8.5-10.1) mg/dL Creatine Kinase 201 (26-308) U/L Troponin I < 0.050 (0.000-0.056) ng/mL Meds: Medications Discontinued Medications Generic Name Dose Route Start Last Admin Trade Name Freq PRN Reason Stop Dose Admin Acetaminophen 1,000 mg 07/02/20 18:42 07/02/20 18:50 Tylenol Extra Strength PO 07/02/20 18:43 1,000 mg ONETIME ONE Administration Albuterol 8 gm 07/02/20 21:00 07/02/20 21:18 Ventolin Hfa INH Not Given Q4H WESTON Albuterol Confirm 07/02/20 21:07 07/02/20 21:17 Ventolin Hfa Administered 07/02/20 21:08 2 inh Dose Administration 8 gm INH .STK-MED ONE Albuterol/Ipratropium 3 ml 07/02/20 18:05 07/02/20 18:22 Duoneb 3.0-0.5 Mg/3 Ml NEB 07/02/20 18:06 3 ml ONETIME ONE Administration Albuterol/Ipratropium 3 ml 07/02/20 19:21 07/02/20 19:34 Duoneb 3.0-0.5 Mg/3 Ml NEB 07/02/20 19:22 3 ml ONETIME ONE Administration Sodium Chloride 1,000 mls @ 1,000 mls/hr 07/02/20 18:45 07/02/20 18:50 Normal Saline IV 1,000 mls/hr ASDIRECTED WESTON Administration Prednisone 60 mg 07/02/20 18:05 07/02/20 18:29 Prednisone PO 07/02/20 18:06 60 mg ONETIME ONE Administration Departure - Departure Time of Disposition: 19:00 Disposition: Still A Patient 30 Condition: Fair Clinical Impression: Acute asthma - Discharge Information *PRESCRIPTION DRUG MONITORING PROGRAM REVIEWED*: No *COPY OF PRESCRIPTION DRUG MONITORING REPORT IN PATIENT JAVID: No Prescriptions: Albuterol [Ventolin HFA] 2 puff INH Q4H #1 puff Instructions: Asthma, Adult Referrals: PCP,None [Primary Care Provider] - Forms: ED Department Discharge Additional Instructions: Your evaluated today on an emergent basis. You did experience an asthma exacerbation. I do recommend close follow-up with your primary care physician for continued management of your asthma. I did prescribe you an albuterol inhaler which should be used 2 puffs every 4 hours as needed for wheezing or shortness of breath. I also sent a prescription for prednisone and you should take 1 tablet of this each day for 5 days. In regards to nasal congestion I do recommend Flonase which can be purchased [id number]. Please use 2 puffs of Flonase twice a day. This medication does not work and last use it every day therefore please continue using this. If you have any new or worsening symptoms such as worsening shortness of breath or wheezing please return to the emergency department. [facility] [address] [place] [id number] [id number] The patient is informed of any results of their evaluation and diagnostic workup and all questions are answered. They are given discharge instructions and return precautions. The patient is stable for discharge. The patient states they understand and agree with the plan and that they will return if their symptoms get worse or if they have any new concerns. The following information is given to patients seen in the emergency department who are being discharged to home. This information is to outline your options for follow-up care. We provide all patients seen in our emergency department with a follow-up referral. The need for follow-up, as well as the timing and circumstances, are variable depending upon the specifics of your emergency department visit. If you don't have a primary care physician on staff, we will provide you with a referral. We always advise you to contact your personal physician following an emergency department visit to inform them of the circumstance of the visit and for follow-up with them and/or the need for any referrals to a consulting specialist. The emergency department will also refer you to a specialist when appropriate. This referral assures that you have the opportunity for follow-up care with a specialist. All of these measure are taken in an effort to provide you with optimal care, which includes your follow-up. Under all circumstances we always encourage you to contact your private physician who remains a resource for coordinating your care. When calling for follow-up care, please make the office aware that this follow-up is from your recent emergency room visit. If for any reason you are refused follow-up, please contact the [facility] Emergency Department at and asked to speak to the emergency department charge nurse. Sepsis Event Note (ED) - Evaluation Sepsis Screening Result: No Definite Risk - Assessment/Plan Plan: Is a 30-year-old male presents today for shortness of breath. Patient given steroids and nebs. Patient work-up still pending will be signed out to oncoming attending.
--- NOTE | 2020-07-24 10:18 | PCM.EKG ---
#1 Interpretation EKG Date: 07/02/20 Time: 19:10 Rhythm: Other (sinus tach) Rate (Beats/Min): 109 ST-T: Normal
== END 2020-07-02 21:20 | disposition still patient (30) ==
LOC: MW.ED 17:54
DX: J45.901 Unspecified asthma with (acute) exacerbation (principal); D72.829 Elevated white blood cell count, unspecified; Z87.891 Personal history of nicotine dependence; Z79.899 Other long term (current) drug therapy
CPT/HCPCS: 71045; 80048; 82550; 84484; 85025; 93005; 99285; A9270; J7030; 93010; 99283; J3535-GY; J7620-GY

== ENCOUNTER 2020-07-20 23:34 | Emergency (ER) | payer SELFPAY ==
[2020-07-21] MEDS ORDERED: Sodium Chloride 0.9% 2.5 ML Syringe FLUSH PRN (00:09)
[2020-07-21] MEDS ORDERED: Ketorolac 15 MG/ML SDV IVPUSH ONE (00:09)
[2020-07-21] MEDS ORDERED: Sodium Chloride 0.9% 1,000 ML IV ONE (00:09)
[2020-07-21] MEDS ORDERED: Sodium Chloride 0.9% 10 ML Syringe FLUSH PRN (00:09)
[2020-07-21 01:00] LABS: BLOOD UREA NITROGEN,BUN 17 mg/dL (7.0-18.0); CARBON DIOXIDE,CO2 27.3 mmol/L (21.0-32.0); CHLORIDE,CL 105 mmol/L (98-107); GLUCOSE RANDOM 94 mg/dL (74-106); SODIUM,NA 143 mmol/L (136-148)
--- NOTE | 2020-07-21 01:13 | CR ---
INDICATION: Cough. TECHNIQUE: Chest 1 view. COMPARISON: 07/02/2020. FINDINGS: Cardiovascular and mediastinum: Heart size and vasculature are normal in caliber and appearance. Mediastinum is within normal limits. Lungs and pleural space: Lungs are clear. No sign of infiltrate or mass. No sign of pleural effusion. No pneumothorax. Bones and soft tissues: No significant findings. IMPRESSION: Lungs are clear. Dictated by Shine Caceres MD @ Jul 21 2020 1:10AM Signed by Dr. Shine Caceres @ Jul 21 2020 1:11AM
[2020-07-21 01:17] LABS: CORONAVIRUS COVID-19 NAA NEGATIVE (NEGATIVE); INFLUENZA A NAA NEGATIVE (NEGATIVE); INFLUENZA B NAA NEGATIVE (NEGATIVE); RESPIRATORY SYNCYTIAL VIR NAA NEGATIVE (NEGATIVE)
[2020-07-21] MEDS ORDERED: Albuterol/Ipratropium 3.0-0.5 MG/3 ML Neb Soln NEB ONE (01:18)
[2020-07-21] MEDS ORDERED: methylPREDNISolone Sodium Succinate 125 MG/2 ML SDV IVPUSH ONE (01:19)
[2020-07-21] MEDS ORDERED: Codeine/Promethazine 10-6.25 MG/5 ML Syrup 5 ML UD Cup PO STA (01:20)
[2020-07-21] MEDS ORDERED: HYDROmorphone 1 MG/ML Syringe ONE (01:47)
[2020-07-21] MEDS ORDERED: HYDROmorphone 1 MG/ML Syringe IM ONE (01:48)
[2020-07-21] MEDS ORDERED: Iopamidol 755 MG/ML 500 ML Multipack Bottle IVPUSH STA (02:17)
--- NOTE | 2020-07-21 02:46 | CT ---
INDICATION: Shortness of breath and back pain TECHNIQUE: CT chest PE was acquired with 100 cc Isovue 370 contrast. COMPARISON: None. FINDINGS: Heart and vasculature: Contrast opacification of the pulmonary arterial tree is adequate. No sign of pulmonary embolism. Heart size is normal. Thoracic aorta and pulmonary artery are normal in caliber. Lungs and pleural: No pleural effusion or pneumothorax. Some bronchial wall thickening with geographic areas of ground-glass opacification within both lungs. Lymph nodes/mediastinum: Soft tissue within the anterior mediastinum, likely residual thymic tissue. Right hilar lymph nodes measure up to 13 millimeters. Chest wall: No masses. Upper abdomen: Normal. Bones: Unremarkable for age. IMPRESSION: 1. No evidence of pulmonary embolus. 2. Bilateral geographic ground-glass opacities suggestive of a viral pneumonia, suspicious for COVID-19 pneumonia. 3. Right hilar adenopathy, presumed reactive to the pulmonary process. Please note that all CT scans at this facility use dose modulation, iterative reconstruction, and/or weight-based dosing when appropriate to reduce radiation dose to as low as reasonably achievable. Dictated by Elías Harris MD @ Jul 21 2020 2:39AM Signed by Dr. Elías Harris @ Jul 21 2020 2:44AM
[2020-07-21] MEDS ORDERED: Azithromycin 250 MG Tab PO ONE (02:59)
[2020-07-21] MEDS ORDERED: Cefdinir 300 MG Cap PO ONE (02:59)
--- NOTE | 2020-07-21 03:13 | EDM.PDOC ---
ED HPI GENERAL MEDICAL PROBLEM - General Chief Complaint: General Stated Complaint: BACK PAIN, EARS RINGING Time Seen by Provider: 07/21/20 00:09 - History of Present Illness INITIAL COMMENTS - FREE TEXT/NARRATIVE: HISTORY AND PHYSICAL: History of present illness: This is a 30-year-old gentleman with no significant past medical history who was negative for hypertension, diabetes, liver, lung, kidney problems who presents ER today secondary to shortness of breath x1 to 2 days. Patient reports he had a fever yesterday of 101. Patient reports he has had nasal congestion, sore throat, nonproductive cough, shortness of breath, nausea. Patient denies any vomiting or diarrhea. Patient denies any dysuria, frequency, urgency. Patient has any chest pain. Patient reports no sick family contacts. Patient has not had coronavirus immunization. Patient denies any tobacco, alcohol, drugs. Patient denies any abdominal or chest surgeries in the past. Patient has any history of heart disease. Review of systems: As per history of present illness and below otherwise all systems reviewed and negative. Past medical history: As per history of present illness and as reviewed below otherwise noncontributory. Surgical history: As per history of present illness and as reviewed below otherwise noncontributory. Social history: No reported history of drug or alcohol abuse. Family history: As per history of present illness and as reviewed below otherwise noncontributory. Physical exam: Constitutional: Patient is oriented to person, place, and time. Appears well- developed and well-nourished. No distress. HEENT: Moist mucous membranes Head: Normocephalic and atraumatic, neck supple, no nuchal rigidity, no photophobia, no Kernig's sign or Brudzinski sign, patient does not present with signs or symptoms of be consistent with meningitis. Oropharynx erythematous with postnasal drip identified. Tympanic membranes are clear. Eyes: Right eye exhibits no discharge. Left eye exhibits no discharge. No scleral icterus Neck: Normal range of motion. No tracheal deviation present. Cardiovascular: Normal rate and regular rhythm. No RV heave, no split S2 Pulmonary: Effort normal, no respiratory distress. Patient with expiratory wheezing. Patient with paroxysmal coughing with deep inspiration. Patient without any E to A changes. Abd: Soft, nondistended, no rebound/guarding, no psoas or obturator signs, no tenderness at Mcberney's point, no Wallace's sign. Pt does not present with an exam that would be consistent with an acute surgical abdomen at this time Musculoskeletal: Normal range of motion. No lower extremity edema no calf tenderness Neurologic: Alert and oriented to person, place and time. Skin: [place], warm and dry. Psychiatric: Normal mood and affect. Behavior is normal. Judgment and thought content normal. Nursing note and vital signs have been reviewed This patient was seen and evaluated during the 2019 SARS-CoV-2 novel coronavirus pandemic period. Community viral transmission is ongoing at time of this encounter and the emergency department is operating under pandemic response procedures. Diagnostics: Chest x-ray chest Xray: Normal cardiac silhouette No infiltrates or effusions identified. No PTX No evidence of acute bony fracture. As interpreted by ER MD: Yan CTA: No evidence of PE, no pleural effusions or pneumothorax. Some bronchial wall thickening with the geographic areas of groundglass opacifications within both lungs. Opacifications are suggestive of viral pneumonia suspicious for COVID-19 pneumonia. Right hilar adenopathy presumed reactive to the pulmonary process. Coronavirus test negative Influenza a/influenza B negative RSV negative CBC unremarkable except for elevated WBC count CMP normal Therapeutics: DuoNeb x1 Decadron x1 Cefdinir 300 mg p.o., Zithromax 500 mg p.o. Phenergan with codeine Dilaudid 1 mg IV for pain NSS x1 L Assessment and plan: This is a 30-year-old gentleman who presents ER today with shortness of breath, cough, congestion, headache. Patient's ER work-up has been unremarkable except for a CTA that has opacifications and a groundglass appearance that could be suggestive for viral versus Covid pneumonia. Patient's Covid test is negative as well as influenza A/B. In the ED the patient pulse ox initially was 88% on room air. Patient's pulse ox significantly improved after DuoNeb treatment and patient reports he feels much better. Patient has been given adequate analgesia and cough medications while here in the ED. Patient will be given cefdinir as well as Zithromax empirically treat for atypical pneumonia patient be started on prednisone as well. Patient was reevaluated by me multiple times in the ED. Patient's pulse ox is 93 to 94% when he sits up and takes deep inspirations. Patient did have episodes of low oxygen level after he was given Dilaudid for his cough and pain. This resolves when he is sitting up and takes deep inspirations. At this time, I feel the patient is stable for discharge home with antibiotics and does not meet criteria for admission. Patient was instructed to return to the ER if he has increased shortness of breath or any new or concerning symptoms. Reassessment at the time of disposition demonstrates that the patient is in no acute distress. The patient has remained stable throughout the entire ED visit and is without objective evidence for acute process requiring urgent intervention or hospitalization. The patient is stable for discharge, counseling is provided as documented above, discussed symptomatic treatment and specific conditions for return. I have spoken with the patient/caregiver and discussed todays findings, in addition to providing specific details for the plan of care. Questions are answered and there is agreement with the plan. Definitive disposition and diagnosis as appropriate pending reevaluation and review of above. headache Pain Score (Numeric/FACES): 7 - Related Data Allergies Allergy/AdvReac Type Severity Reaction Status Date / Time No Known Allergies Allergy Verified 07/20/20 23:58 Home Meds: Home Meds Albuterol [Ventolin HFA] 2 puff IH Q4HR PRN 5 Days #1 inhaler 07/05/19 [Rx] Albuterol [Ventolin HFA] 2 puff INH Q4H #1 puff 07/02/20 [Rx] Albuterol Sulfate [Albuterol Sulfate HFA] 8.5 gm INH Q6H PRN #1 inhaler 07/21/20 [Rx] Azithromycin [Zithromax] 250 mg PO DAILY #4 tablet 07/21/20 [Rx] Cefdinir 300 mg PO Q12HR #20 capsule 07/21/20 [Rx] Codeine/Promethazine [Phenergan with Codeine] 5 ml PO Q6HR PRN #120 ml 07/21/20 [Rx] Ibuprofen 600 mg PO Q6HR PRN #30 tablet 07/21/20 [Rx] predniSONE [Prednisone] 50 mg PO DAILY #5 tablet 07/21/20 [Rx] Past Medical History - Past Health History Medical/Surgical History: Denies Medical/Surgical History Respiratory History: Reports: Asthma - Infectious Disease History Infectious Disease History: Reports: Measles Social & Family History - Family History Family Medical History: No Pertinent Family History - Tobacco Use Tobacco Use Status *Q: Never Tobacco User - Caffeine Use Caffeine Use: Reports: None - Recreational Drug Use Recreational Drug Use: No ED ROS GENERAL - Review of Systems Review Of Systems: See Below ED EXAM, GENERAL - Physical Exam Exam: See Below Course - Vital Signs Last Recorded V/S: Last Vital Signs Temp 98.0 F 07/20/20 23:55 Pulse 90 07/21/20 02:26 Resp 16 07/21/20 02:26 BP 138/86 07/21/20 02:26 Pulse Ox 91 L 07/21/20 02:26 - Orders/Labs/Meds Orders: Active Orders 24 hr Category Date Time Status RT Aerosol Therapy [RC] ASDIRECTED Care 07/21/20 01:19 Active Sodium Chloride 0.9% [Saline Flush] Med 07/21/20 00:09 Active 10 ml FLUSH ASDIRECTED PRN Sodium Chloride 0.9% [Saline Flush] Med 07/21/20 00:09 Active 2.5 ml FLUSH ASDIRECTED PRN Saline Lock Insert [OM.PC] Stat Oth 07/21/20 00:09 Ordered Medication Orders Sodium Chloride (Saline Flush) 10 ml FLUSH ASDIRECTED PRN PRN Reason: Keep Vein Open Last Admin: 07/21/20 00:24 Dose: 10 ml Documented by: BISI Sodium Chloride (Saline Flush) 2.5 ml FLUSH ASDIRECTED PRN PRN Reason: Keep Vein Open Last Admin: 07/21/20 00:25 Dose: 2.5 ml Documented by: BISI Labs: Laboratory Tests 07/21/20 07/21/20 07/21/20 Range/Units 00:31 00:31 00:31 WBC 17.74 H (4.0-11.0) K/uL RBC 5.84 (4.50-5.90) M/uL Hgb 17.0 (13.0-17.0) g/dL Hct 49.9 (38.0-50.0) % MCV 85.4 (80.0-98.0) fL MCH 29.1 (27.0-32.0) pg MCHC 34.1 (31.0-37.0) g/dL RDW Std Deviation 40.6 (28.0-62.0) fl RDW Coeff of Yamilet 13 (11.0-15.0) % Plt Count 322 (150-400) K/uL MPV 9.20 (7.40-12.00) fL Neut % (Auto) 54.7 (48.0-80.0) % Lymph % (Auto) 24.8 (16.0-40.0) % [place] % (Auto) 5.4 (0.0-15.0) % Eos % (Auto) 14.5 H (0.0-7.0) % Baso % (Auto) 0.6 (0.0-1.5) % Neut # (Auto) 9.7 H (1.4-5.7) K/uL Lymph # (Auto) 4.4 H (0.6-2.4) K/uL [place] # (Auto) 1.0 H (0.0-0.8) K/uL Eos # (Auto) 2.6 H (0.0-0.7) K/uL Baso # (Auto) 0.1 (0.0-0.1) K/uL D-Dimer, Quantitative 0.43 (0.0-0.50) mg/L FEU Sodium 143 (136-148) mmol/L Potassium 4.0 (3.5-5.1) mmol/L Chloride 105 (98-107) mmol/L Carbon Dioxide 27.3 (21.0-32.0) mmol/L BUN 17 (7.0-18.0) mg/dL Creatinine 0.9 (0.8-1.3) mg/dL Est Cr Clr Drug Dosing 127.30 mL/min Estimated GFR (MDRD) > 60.0 ml/min Glucose 94 (74-106) mg/dL Calcium 9.3 (8.5-10.1) mg/dL Total Bilirubin 0.6 (0.2-1.0) mg/dL AST 16 (15-37) IU/L ALT 53 (14-63) IU/L Alkaline Phosphatase 81 (46-116) U/L Total Protein 8.2 (6.4-8.2) g/dL Albumin 4.3 (3.4-5.0) g/dL Globulin 3.9 (2.6-4.0) g/dL Albumin/Globulin Ratio 1.1 (0.9-1.6) Influenza Type A RNA (NEGATIVE) RSV RNA (INAAT) (NEGATIVE) Influenza Type B RNA (NEGATIVE) SARS-CoV-2 RNA (SISI) (NEGATIVE) 07/21/20 Range/Units 00:33 WBC (4.0-11.0) K/uL RBC (4.50-5.90) M/uL Hgb (13.0-17.0) g/dL Hct (38.0-50.0) % MCV (80.0-98.0) fL MCH (27.0-32.0) pg MCHC (31.0-37.0) g/dL RDW Std Deviation (28.0-62.0) fl RDW Coeff of Yamilet (11.0-15.0) % Plt Count (150-400) K/uL MPV (7.40-12.00) fL Neut % (Auto) (48.0-80.0) % Lymph % (Auto) (16.0-40.0) % [place] % (Auto) (0.0-15.0) % Eos % (Auto) (0.0-7.0) % Baso % (Auto) (0.0-1.5) % Neut # (Auto) (1.4-5.7) K/uL Lymph # (Auto) (0.6-2.4) K/uL [place] # (Auto) (0.0-0.8) K/uL Eos # (Auto) (0.0-0.7) K/uL Baso # (Auto) (0.0-0.1) K/uL D-Dimer, Quantitative (0.0-0.50) mg/L FEU Sodium (136-148) mmol/L Potassium (3.5-5.1) mmol/L Chloride (98-107) mmol/L Carbon Dioxide (21.0-32.0) mmol/L BUN (7.0-18.0) mg/dL Creatinine (0.8-1.3) mg/dL Est Cr Clr Drug Dosing mL/min Estimated GFR (MDRD) ml/min Glucose (74-106) mg/dL Calcium (8.5-10.1) mg/dL Total Bilirubin (0.2-1.0) mg/dL AST (15-37) IU/L ALT (14-63) IU/L Alkaline Phosphatase (46-116) U/L Total Protein (6.4-8.2) g/dL Albumin (3.4-5.0) g/dL Globulin (2.6-4.0) g/dL Albumin/Globulin Ratio (0.9-1.6) Influenza Type A RNA NEGATIVE (NEGATIVE) RSV RNA (INAAT) NEGATIVE (NEGATIVE) Influenza Type B RNA NEGATIVE (NEGATIVE) SARS-CoV-2 RNA (SISI) NEGATIVE (NEGATIVE) Meds: Medications Generic Name Dose Route Start Last Admin Trade Name Freq PRN Reason Stop Dose Admin Sodium Chloride 10 ml 07/21/20 00:09 07/21/20 00:24 Saline Flush FLUSH 10 ml ASDIRECTED PRN Administration Keep Vein Open Sodium Chloride 2.5 ml 07/21/20 00:09 07/21/20 00:25 Saline Flush FLUSH 2.5 ml ASDIRECTED PRN Administration Keep Vein Open Discontinued Medications Generic Name Dose Route Start Last Admin Trade Name Freq PRN Reason Stop Dose Admin Albuterol/Ipratropium 3 ml 07/21/20 01:18 07/21/20 01:35 Duoneb 3.0-0.5 Mg/3 Ml NEB 07/21/20 01:19 3 ml ONETIME ONE Administration Azithromycin 500 mg 07/21/20 02:59 Zithromax PO 07/21/20 03:00 Q24H ONE Cefdinir 300 mg 07/21/20 02:59 Omnicef PO 07/21/20 03:00 ONETIME ONE Hydromorphone HCl 1 mg 07/21/20 01:48 07/21/20 01:48 Dilaudid IM 07/21/20 01:49 1 mg ONETIME ONE Administration Hydromorphone HCl Confirm 07/21/20 01:47 07/21/20 02:24 Dilaudid Administered 07/21/20 01:48 Not Given Dose 1 mg .ROUTE .STK-MED ONE Sodium Chloride 1,000 mls @ 999 mls/hr 07/21/20 00:09 07/21/20 00:19 Normal Saline IV 07/21/20 01:09 999 mls/hr .Bolus ONE Administration Iopamidol 100 ml 07/21/20 02:17 07/21/20 02:18 Isovue Multipack-370 (76%) IVPUSH 07/21/20 02:18 100 ml ONETIME STA Administration Ketorolac Tromethamine 15 mg 07/21/20 00:09 07/21/20 00:19 Toradol IVPUSH 07/21/20 00:10 15 mg ONETIME ONE Administration Methylprednisolone Sodium Succinate 125 mg 07/21/20 01:19 07/21/20 01:35 Solu-Medrol IVPUSH 07/21/20 01:20 125 mg ONETIME ONE Administration Promethazine HCl/Codeine 10 ml 07/21/20 01:20 07/21/20 01:35 Phenergan With Codeine PO 07/21/20 01:21 10 ml Q6HR STA Administration Departure - Departure Time of Disposition: 03:13 Disposition: Home, Self-Care 01 Condition: Good Clinical Impression: Atypical pneumonia - Discharge Information Instructions: Community-Acquired Pneumonia, Adult Referrals: PCP,None [Primary Care Provider] - Additional Instructions: You were seen and evaluated in the ER today secondary to signs symptoms consistent with pneumonia. Your chest x-ray did not reveal any evidence of bacterial pneumonia however the CT scan that we obtained did show that you have inflammation in your lung consistent with a viral/atypical pneumonia presentation. Your coronavirus test, influenza A, influenza B test were negative here in the ED. Your CT scan did not show any evidence of blood clots in your lungs. You will be discharged home with a prescription for antibiotics. You will be given cefdinir as well as Zithromax to take. You will also be sent home with a prescription for prednisone, and albuterol inhaler, and Phenergan with codeine to assist with your cough. Please return to the ER if you start getting more short of breath or if you have any new or concerning symptoms. The following information is given to patients seen in the emergency department who are being discharged to home. This information is to outline your options for follow-up care. We provide all patients seen in our emergency department with a follow-up referral. The need for follow-up, as well as the timing and circumstances, are variable depending upon the specifics of your emergency department visit. If you don't have a primary care physician on staff, we will provide you with a referral. We always advise you to contact your personal physician following an emergency department visit to inform them of the circumstance of the visit and for follow-up with them and/or the need for any referrals to a consulting specialist. The emergency department will also refer you to a specialist when appropriate. This referral assures that you have the opportunity for follow-up care with a specialist. All of these measure are taken in an effort to provide you with optimal care, which includes your follow-up. Under all circumstances we always encourage you to contact your private physician who remains a resource for coordinating your care. When calling for follow-up care, please make the office aware that this follow-up is from your recent emergency room visit. If for any reason you are refused follow-up, please contact the [facility] Emergency Department at and asked to speak to the emergency department charge nurse. [facility] - Primary [facility] [address] [place] [id number] [address] Sepsis Event Note (ED) - Evaluation Sepsis Screening Result: No Definite Risk - Focused Exam Vital Signs: Vital Signs Temp Pulse Resp BP Pulse Ox 07/21/20 02:26 90 16 138/86 91 L 07/21/20 01:39 98 22 H 142/96 H 96 07/21/20 00:40 99 18 131/82 93 L 07/20/20 23:55 98.0 F 102 H 28 H 117/78 90 L - My Orders Last 24 Hours: My Active Orders 07/21/20 00:09 Sodium Chloride 0.9% [Saline Flush] 10 ml FLUSH ASDIRECTED PRN Sodium Chloride 0.9% [Saline Flush] 2.5 ml FLUSH ASDIRECTED PRN Saline Lock Insert [OM.PC] Stat 07/21/20 01:19 RT Aerosol Therapy [RC] ASDIRECTED - Assessment/Plan Last 24 Hours: My Active Orders 07/21/20 00:09 Sodium Chloride 0.9% [Saline Flush] 10 ml FLUSH ASDIRECTED PRN Sodium Chloride 0.9% [Saline Flush] 2.5 ml FLUSH ASDIRECTED PRN Saline Lock Insert [OM.PC] Stat 07/21/20 01:19 RT Aerosol Therapy [RC] ASDIRECTED
== END 2020-07-21 03:47 | disposition home or self-care (01) ==
LOC: MW.ED 23:34
DX: J18.9 Pneumonia, unspecified organism (principal); J45.909 Unspecified asthma, uncomplicated; Z79.899 Other long term (current) drug therapy; Z20.822 Contact with and (suspected) exposure to COVID-19
CPT/HCPCS: 0241U; 36415; 71045; 71275; 80053; 85025; 85379; 94640; 96372; 96374; 96375; 99285; A9270; J1170; J1885; J2930; J7030; Q9967; 99283; J7620-GY

== ENCOUNTER 2020-07-30 17:32 | Emergency (ER) | payer SELFPAY ==
--- NOTE | 2020-07-30 17:51 | EDM.PDOC ---
ED HPI GENERAL MEDICAL PROBLEM - General Stated Complaint: VOMITING Time Seen by Provider: 07/30/20 17:49 Source of Information: Reports: Patient History Limitations: Reports: No Limitations - History of Present Illness INITIAL COMMENTS - FREE TEXT/NARRATIVE: HISTORY AND PHYSICAL: History of present illness: Patient is a 30-year-old male who presents to the emergency room with complaints of body aches, chills and feeling like he is constantly sweating. He states a coworker/close contact was recently diagnosed with COVID-19. He is concerned he has COVID-19 and would like testing. He has had a few loose stools, mild nausea and generalized headaches over the past few days. Patient denies any change in vision, syncope or near syncope. Denies any chest pain, back pain, shortness of breath or cough. Denies any abdominal pain, nausea, vomiting, diarrhea, constipation or dysuria. Has not noted any blood in urine or stool. Patient has been eating and drinking appropriately. Review of systems: As per history of present illness and below otherwise all systems reviewed and negative. Past medical history: As per history of present illness and as reviewed below otherwise noncontributory. Surgical history: As per history of present illness and as reviewed below otherwise noncontributory. Social history: See social history for further information Family history: As per history of present illness and as reviewed below otherwise noncontributory. Physical exam: General: Well developed and well nourished. Alert and orientated x 3. Nontoxic in appearance and in no acute distress. Vital signs are stable and have been reviewed by me. Nursing notes were reviewed. HEENT: Atraumatic, normocephalic, pupils equal and reactive bilaterally, negative for conjunctival pallor or scleral icterus, mucous membranes moist, TMs normal bilaterally, throat clear, neck supple, nontender, trachea midline. No drooling or trismus noted. No meningeal signs. No hot potato voice noted. Lungs: Clear to auscultation bilaterally. No wheezes, rales, or rhonchi. Chest nontender. Normal work of breathing, no accessory muscles used. Heart: S1S2, regular rate and rhythm without overt murmur, gallops, or rubs. No JVD. No peripheral edema Abdomen: Soft, nondistended, nontender. Normoactive bowel sounds. Negative for masses or costovertebral tenderness. Pelvis: Stable nontender. Genitourinary/Rectal: Deferred. Skin: Intact, warm, dry. No lesions or rashes noted. Hematologic: No petechiae or purpra. Mucosa appropriate color and normal nail bed color and refill. Extremities: Atraumatic, moves all extremities per self without difficulty or deficits, negative for cords or calf pain. Neurovascular unremarkable. Neuro: Awake, alert, oriented. Cranial nerves II through XII unremarkable. Cerebellum unremarkable. Motor and sensory unremarkable throughout. Exam nonfocal. Psychiatric: Mood and affect are appropriate. Normal thought process. Answering questions appropriately. Notes: *This patient was seen and evaluated during the 2019 SARS-CoV-2 novel coronavirus pandemic period. Community viral transmission is ongoing at time of this encounter and the emergency department is operating under pandemic response procedures. I have talked with the patient about today's findings, in addition to providing specific details for plan of care. Reassessment at the time of disposition demonstrates that the patient is in no acute distress. The patient is stable for discharge, counseling was provided and we discussed in great detail signs and symptoms that would prompt them to return to the Emergency Department. Medication, follow up and supportive care measures were reviewed and discussed. Voices understanding and is agreeable to plan of care. Denies any further questions or concerns at this time. Diagnostics: COVID-19 Therapeutics: None Prescription: None Impression: COVID 19 Plan: 1. Your COVID-19 screening is positive. That means you do have the coronavirus and you are considered contagious. Your vital signs and oxygen saturation are well enough that you were able to monitor your symptoms at home. Continue to monitor for trouble breathing, new confusion or inability to arouse, bluish lips or face or any of the other symptoms we discussed -if this occurs please return to the emergency room. 2. Please self quarantine over the next 10 days. Inform any persons that you have been in contact with since you started becoming symptomatic that you have tested positive; they should be made aware and take the appropriate steps as needed. 3. You can take NyQuil during the evening to help get a restful night sleep. May alternate Tylenol and ibuprofen as needed for pain and fever management. 4. [facility] will be calling you and following up with you. The [place] COVID 19 Hotline phone number , They are open Thursday - Thursday 7am - 7pm. Follow up with your primary care provider for re-evaluation and re-testing after the 10 day quarantine and discuss when you should be seen. Definitive disposition and diagnosis as appropriate pending reevaluation and review of above. Body aches Pain Score (Numeric/FACES): 3 - Related Data Allergies Allergy/AdvReac Type Severity Reaction Status Date / Time No Known Allergies Allergy Verified 07/30/20 19:06 Home Meds: Home Meds Albuterol [Ventolin HFA] 2 puff IH Q4HR PRN 5 Days #1 inhaler 07/05/19 [Rx] Albuterol [Ventolin HFA] 2 puff INH Q4H #1 puff 07/02/20 [Rx] Albuterol Sulfate [Albuterol Sulfate HFA] 8.5 gm INH Q6H PRN #1 inhaler 07/21/20 [Rx] Azithromycin [Zithromax] 250 mg PO DAILY #4 tablet 07/21/20 [Rx] Cefdinir 300 mg PO Q12HR #20 capsule 07/21/20 [Rx] Codeine/Promethazine [Phenergan with Codeine] 5 ml PO Q6HR PRN #120 ml 07/21/20 [Rx] Ibuprofen 600 mg PO Q6HR PRN #30 tablet 07/21/20 [Rx] predniSONE [Prednisone] 50 mg PO DAILY #5 tablet 07/21/20 [Rx] Albuterol [Proventil HFA] 200 puff INH Q4H #1 inhaler 08/03/20 [Rx] Past Medical History - Past Health History Medical/Surgical History: Denies Medical/Surgical History Respiratory History: Reports: Asthma - Infectious Disease History Infectious Disease History: Reports: Measles Social & Family History - Family History Family Medical History: No Pertinent Family History - Caffeine Use Caffeine Use: Reports: None ED ROS GENERAL - Review of Systems Review Of Systems: Comprehensive ROS is negative, except as noted in HPI. ED EXAM, GENERAL - Physical Exam Exam: See Below (See dictation) Course - Vital Signs Last Recorded V/S: Last Vital Signs Temp 99.6 F 07/30/20 19:07 Pulse 102 H 07/30/20 19:07 Resp 20 07/30/20 19:07 BP 113/75 03/01/21 19:07 Pulse Ox 96 07/30/20 19:07 - Orders/Labs/Meds Labs: Laboratory Tests 07/30/20 Range/Units 18:21 SARS-CoV-2 RNA (SISI) POSITIVE H (NEGATIVE) Departure - Departure Time of Disposition: 19:11 Disposition: Home, Self-Care 01 Clinical Impression: COVID-19 - Discharge Information Instructions: COVID-19 Frequently Asked Questions Referrals: PCP,None [Primary Care Provider] - Forms: ED Department Discharge Additional Instructions: La siguiente informacin se proporciona a los pacientes atendidos en el departamento de emergencias que estn siendo dados de lacey a segura hogar. Esta informacin es para describir lyndsay opciones para la atencin de seguimiento. Proporcionamos a todos los pacientes atendidos en nuestro departamento de emergencias romeo derivacin de seguimiento. La necesidad de seguimiento, as kosta el momento y las circunstancias, varan segn los detalles de segura visita al departamento de emergencias. Si no tiene un mdico de atencin primaria en el personal, le proporcionaremos romeo referencia. Siempre le recomendamos que se ponga en contacto con segura mdico personal despus de romeo visita al servicio de urgencias para informarle de las circunstancias de la visita y para realizar un seguimiento con l y / o la necesidad de derivaciones a un especialista consultor. El departamento de emergencias tambin lo derivar a un especialista cuando sea apropiado. Esta remisin le asegura que tiene la oportunidad de recibir atencin de seguimiento con un especialista. Todas estas medidas se kate en un esfuerzo por brindarle romeo atencin ptima, que incluye segura seguimiento. En todas las circunstancias, siempre lo alentamos a que se comunique con esgura mdico privado, quien sigue siendo un recurso para coordinar segura atencin. Cuando llame para recibir atencin de seguimiento, informe al consultorio que neno seguimiento es de segura visita reciente a la christine de emergencias. Si por alguna razn se le niega el seguimiento, comunquese con el Departamento de Emergencias del [facility] al y solicite hablar con la enfermera a cargo del departamento de emergencias. [facility] [address] [place] [id number] [facility] [address] [place] [id number] [place] por elegir el departamento de emergencias de [facility] para lyndsay necesidades mdicas alaina. Fue un placer cuidar de ti. 1. Your COVID-19 screening is positive. That means you do have the coronavirus and you are considered contagious. Your vital signs and oxygen saturation are well enough that you were able to monitor your symptoms at home. Continue to monitor for trouble breathing, new confusion or inability to arouse, bluish lips or face or any of the other symptoms we discussed -if this occurs please return to the emergency room. 2. Please self quarantine over the next 10 days. Inform any persons that you have been in contact with since you started becoming symptomatic that you have tested positive; they should be made aware and take the appropriate steps as needed. 3. You can take NyQuil during the evening to help get a restful night sleep. May alternate Tylenol and ibuprofen as needed for pain and fever management. 4. [facility] will be calling you and following up with you. The [place] COVID 19 Hotline phone number , They are open Thursday - Thursday 7am - 7pm. Follow up with your primary care provider for re-evaluation and re-testing after the 10 day quarantine and discuss when you should be seen. 1. Segura prueba de deteccin de COVID-19 es positiva. Eso significa que tiene el coronavirus y se le considera contagioso. Lyndsay signos vitales y la saturacin de oxgeno estn lo suficientemente linda kosta para poder controlar lyndsay sntomas en casa. Contine monitoreando si tiene problemas para respirar, nueva confusin o incapacidad para despertarse, labios o coleman azulados o cualquiera de los otros sntomas que discutimos; si esto ocurre, regrese a la christine de emergencias. 2. Por favor, pngase en cuarentena nusrat los prximos 10 solis. Informe a todas las personas con las que kennedy estado en contacto desde que comenz a tener sntomas de que kennedy dado positivo en la prueba; deben ser conscientes y lara las medidas adecuadas segn sea necesario. 3. Puede lara NyQuil nusrat la noche para ayudarlo a tener un sueo reparador. Puede alternar Tylenol e ibuprofeno segn sea necesario para controlar el dolor y la fiebre. 4. El departamento de husam del estado lo llamar y se pondr en contacto con basilio. La lnea directa de [place] COVID 19, nmero de telfono , est abierta de lunes a viernes de 7 a. M. A 7 p. M. Isrrael un seguimiento con segura proveedor de atencin primaria para romeo reevaluacin y romeo nueva prueba despus de la cuarentena de 10 solis y discuta cundo debe ser atendido.
== END 2020-07-30 19:17 | disposition home or self-care (01) ==
LOC: MW.ED 17:32
DX: U07.1 COVID-19 (principal); J45.909 Unspecified asthma, uncomplicated; Z79.899 Other long term (current) drug therapy
CPT/HCPCS: 99282; 99283; U0002

== ENCOUNTER 2020-08-02 23:52 | Emergency (ER) | payer SELFPAY ==
[2020-08-03] MEDS ORDERED: Albuterol HFA 18 Gm Inhaler INH STA (00:31)
[2020-08-03] MEDS ORDERED: Lactated Ringers 1,000 ML IV SCH (00:45)
[2020-08-03] MEDS ORDERED: Albuterol 6.7 GM Inhaler INH ONE (00:46)
[2020-08-03] MEDS: Albuterol 8 GM Inhaler INH ONE ×3 (00:48→00:53)
[2020-08-03] MEDS ORDERED: Albuterol HFA 18 Gm Inhaler INH ONE (00:49)
[2020-08-03] MEDS ORDERED: Albuterol HFA 18 Gm Inhaler INH PRN (00:52)
[2020-08-03 00:54] LABS: ACETAMINOPHEN <2.0 ug/mL; BLOOD UREA NITROGEN,BUN 11 mg/dL (7.0-18.0); CARBON DIOXIDE,CO2 21.4 mmol/L (21.0-32.0); CHLORIDE,CL 100 mmol/L (98-107); GLUCOSE RANDOM 153 mg/dL (74-106); POTASSIUM,K 3.6 mmol/L (3.5-5.1); SODIUM,NA 138 mmol/L (136-148)
--- NOTE | 2020-08-03 01:21 | CR ---
HISTORY: Shortness of breath. Unable to take a deep inspiration. COMPARISON: Portable chest and CT of the chest from 07/21/2020. FINDINGS: A portable erect AP view of the chest was obtained at 0057 hours. There has been progression of the previously seen mild nonspecific infiltrates, more clearly evident in the right perihilar, right infrahilar, and left lateral basilar regions, consistent with progressive, such as COVID-19. these infiltrates remain mild, previously seen only on the CT of the chest. There is no sign of any pleural effusion. The heart remains normal in size. The mediastinum is normal in appearance. The osseous structures are normal in appearance for the patient`s age. IMPRESSION: Progression of bilateral nonspecific mild patchy infiltrates, consistent with progressive atypical pneumonia such as COVID-19. Dictated by Juan M Pickering MD @ Aug 03 2020 1:18AM Signed by Dr. Juan M Pickering @ Aug 03 2020 1:21AM
--- NOTE | 2020-08-03 02:11 | EDM.PDOC ---
ED HPI GENERAL MEDICAL PROBLEM - General Chief Complaint: Respiratory Problem Stated Complaint: COVID COMPLICATION Time Seen by Provider: 08/03/20 00:11 - History of Present Illness INITIAL COMMENTS - FREE TEXT/NARRATIVE: CHIEF COMPLAINT(S): Decreased urination HISTORY OF PRESENT ILLNESS: History obtained with hotel manager This is a 30-year-old Turkish-speaking gentleman man who has been evaluated in our emergency department multiple times who was recently diagnosed with COVID-19 pneumonia and resultant bacterial pneumonia on antibiotics with a past medical history of asthma who comes to the emergency department with a chief complaint of decreased urination. The patient states that since getting Covid he has been experiencing a headache which is bifrontal not associated with any blurry vision, loss of vision, numbness, tingling, or weakness. He states that he has joint pain throughout his back, legs and is experiencing a sore throat. He states that he has had fevers at home for which she has been taking Tylenol without any relief. He states that he is taking Tylenol initially every 6 hours and Motrin every 6 hours but now he is taking it every 3-4 hours. He states that he is concerned because he is experiencing some shortness of breath especially with exertion. He states that he does not have any productive cough but states that he is still coughing. He denies any lower extremity swelling or prior history of DVT or PE. He denies any history of CAD. He states in addition to this he has not urinated in a couple of days. He denies any dysuria or hematuria. He states that he has been trying to tolerate fluids but has not had an appetite. He states that he tried eating greasy foods and a hamburger but it seems to upset his stomach and make him agitated. He denies any other symptoms. REVIEW OF SYSTEMS: Constitutional: Positive for fever Eyes: Denies eye pain Ears, Nose, Mouth, & Throat: Positive for sore throat Cardiovascular: Denies chest pain Respiratory: Positive for shortness of breath, cough which is nonproductive Gastrointestinal: Denies Nausea, vomiting, diarrhea, hematochezia. Genitourinary: Positive for anuria. Denies hematuria, dysuria Skin:Denies a rash MSK: Positive for joint pain Neurological: Positive for headache. Denies blurred vision, numbness, tingling, weakness Psychiatric: Denies depression PAST MEDICAL HISTORY: As per history of present illness and as reviewed below otherwise noncontributory. SURGICAL HISTORY: As per history of present illness and as reviewed below otherwise noncontributory. SOCIAL HISTORY: As per history of present illness and as reviewed below otherwise noncontributory. FAMILY HISTORY: As per history of present illness and as reviewed below otherwise noncontributory. EXAMINATION OF ORGAN SYSTEMS/BODY AREAS: Constitutional: Blood pressure is 130/70, heart rate 117, respiratory rate 22 with an oxygen saturation of 94% on room air. Temperature 35.7 temporally General: Young man who does not appear to be in any acute distress. Psychiatric: Appropriate mood and affect. Eyes: No scleral icterus or conjunctival erythema pupils are equal round reactive to light. Extraocular movements intact. ENMT: Dry mucous membranes. No pharyngeal erythema. No anterior posterior cervical lymphadenopathy. Cardiovascular: Tachycardic but regular. No gallops, murmurs, or rubs. Bilateral upper extremity pulses symmetric and intact. No peripheral edema. No JVD. Respiratory: The patient is speaking in full sentences. There is bilateral mild expiratory wheezing. No prolonged expiratory phase. Gastrointestinal: Soft, non-tender, non-distended. Normoactive bowel sounds Genitourinary: No suprapubic tenderness Musculoskeletal: Normal range of motion. No joint pain on palpation or swelling. Skin: No lesions or abrasions. Neurological: AOx4. CN grossly intact. Stregth 5/5 in bilateral upper and lower extremity. Sensation is intact bilaterally in upper and lower extremity. Gait appears normal. MEDICAL DECISION MAKING AND COURSE IN THE ED WITH INTERPRETATION/REVIEW OF DIAGNOSTIC STUDIES: This is a 30-year-old Turkish-speaking gentleman with a past medical history of asthma and recent diagnosis on July 30, 2020 with COVID-19 and resultant bacterial pneumonia on antibiotics who comes to the emergency department with continued shortness of breath and cough with complaint of decreased urination and viral syndrome including joint pain and headache. The patient is mildly tachycardic on examination with adequate pulse oximetry. There is also evidence of some dehydration therefore we will provide the patient with 1 L of lactated Ringer's bolus. We will provide the patient with 2 puffs of albuterol as he does have a history of asthma. We will obtain labs including CBC, CMP, chest x-ray, and Tylenol level given his increased Tylenol use that she reports. I did review the patient's chart and the patient did have a COVID-19 positive test on July 30, 2020. It does appear that the patient had symptoms of Covid starting on July 21, 2020. The patient has undergone multiple work-ups including recent D-dimer which is negative and an angiography for PE on July 21, 2020 which did not reveal any acute pulmonary embolism with bilateral groundglass opacities. It was on July 21, 2020 that the patient received cefdinir and azithromycin for bacterial pneumonia. Recent laboratory analysis at that time did reveal a leukocytosis of 22.31 and 17.74, troponin was negative at that time. At this time it does appear that the patient has had a an extensive work-up and I do believe his symptoms are likely due to COVID-19. As there are other treatments for COVID-19 I did review the inclusion criteria for these treatments including monoclonal antibodies and the patient does not meet the criteria. The patient is borderline hypoxic on room air however he is not admitted and not requiring supplemental oxygenation therefore dexamethasone is also not indicated. We will evaluate patient's ambulatory pulse ox as the patient states that he is normally fine when he is sitting but he does have exertional dyspnea. Laboratory: CBC is unremarkable, with decreased WBC count. INR is normal. CMP reveals elevated glucose at 154, hypocalcemia at 8.4, mild elevation in AST at 70 and ALT of 117 which can be seen in COVID-19 otherwise unremarkable. His kidney function is normal. The radiological images were viewed by myself along with reading the report from the radiologist. Chest x-ray reveals progression of bilateral nonspecific mild patchy infiltrates consistent with atypical pneumonia such as COVID-19. We did perform a an ambulatory pulse oximetry and the patient did not have any decreased oxygenation beyond 92%. The patient remained at 94 to 96% while ambulating. After imaging the patient stated that he had felt better. I discussed with him at this time that I per prescribing him a albuterol inhaler to be used as needed for his asthma. I do not recommend using the albuterol inhaler every 2 hours. I discussed that his symptoms are due to Covid and that he needs to use Tylenol 500 mg to 1000 mg every 6 hours and Motrin 400 to 600 mg every 6 hours but no more than this dose. I discussed that during a viral illness he should use bland foods including soup so that he could stay hydrated. I did discuss with him this is why he probably does not have a lot of urine. I discussed that he should supplement with Pedialyte and Gatorade. I encouraged the patient to obtain a pulse oximetry at home and to return to the emergency department if he is persistently hypoxic while sitting. He was amenable to discharge at this time and had no further questions. All conversations with the patient a hotel manager was used. DISPOSITION: The patient was discharged home in stable condition. The patient will follow up with follow-up with his primary care physician within 2 to 3 days CONDITION: Fair PROCEDURES: None FINAL IMPRESSION(S)/DIAGNOSES: 1. Acute dyspnea on exertion secondary to COVID-19 and asthma. 2. Acute decreased urination likely secondary to decreased p.o. intake 3. Acute tachycardia likely secondary to dehydration Ge Wang M.D. generalized Pain Score (Numeric/FACES): 6 - Related Data Allergies Allergy/AdvReac Type Severity Reaction Status Date / Time No Known Allergies Allergy Verified 07/30/20 19:06 Home Meds: Home Meds Albuterol [Ventolin HFA] 2 puff IH Q4HR PRN 5 Days #1 inhaler 07/05/19 [Rx] Albuterol [Ventolin HFA] 2 puff INH Q4H #1 puff 07/02/20 [Rx] Albuterol Sulfate [Albuterol Sulfate HFA] 8.5 gm INH Q6H PRN #1 inhaler 07/21/20 [Rx] Azithromycin [Zithromax] 250 mg PO DAILY #4 tablet 07/21/20 [Rx] Cefdinir 300 mg PO Q12HR #20 capsule 07/21/20 [Rx] Codeine/Promethazine [Phenergan with Codeine] 5 ml PO Q6HR PRN #120 ml 07/21/20 [Rx] Ibuprofen 600 mg PO Q6HR PRN #30 tablet 07/21/20 [Rx] predniSONE [Prednisone] 50 mg PO DAILY #5 tablet 07/21/20 [Rx] Albuterol [Proventil HFA] 200 puff INH Q4H #1 inhaler 08/03/20 [Rx] Past Medical History - Past Health History Medical/Surgical History: Denies Medical/Surgical History Respiratory History: Reports: Asthma - Infectious Disease History Infectious Disease History: Reports: Measles, Novel Coronavirus Social & Family History - Family History Family Medical History: No Pertinent Family History - Tobacco Use Tobacco Use Status *Q: Never Tobacco User - Caffeine Use Caffeine Use: Reports: None - Recreational Drug Use Recreational Drug Use: No ED ROS GENERAL - Review of Systems Review Of Systems: See Below ED EXAM, GENERAL - Physical Exam Exam: See Below Course - Vital Signs Last Recorded V/S: Last Vital Signs Temp 35.7 C L 08/03/20 00:02 Pulse 95 08/03/20 02:14 Resp 20 08/03/20 02:14 BP 107/63 08/03/20 02:14 Pulse Ox 94 L 08/03/20 02:14 - Orders/Labs/Meds Labs: Laboratory Tests 08/03/20 08/03/20 08/03/20 Range/Units 00:15 00:15 00:15 WBC 7.22 (4.0-11.0) K/uL RBC 5.66 (4.50-5.90) M/uL Hgb 16.4 (13.0-17.0) g/dL Hct 47.8 (38.0-50.0) % MCV 84.5 (80.0-98.0) fL MCH 29.0 (27.0-32.0) pg MCHC 34.3 (31.0-37.0) g/dL RDW Std Deviation 41.2 (28.0-62.0) fl RDW Coeff of Yamilet 13 (11.0-15.0) % Plt Count 156 (150-400) K/uL MPV 9.60 (7.40-12.00) fL Neut % (Auto) 70.7 (48.0-80.0) % Lymph % (Auto) 20.2 (16.0-40.0) % Rooks % (Auto) 6.2 (0.0-15.0) % Eos % (Auto) 2.8 (0.0-7.0) % Baso % (Auto) 0.1 (0.0-1.5) % Neut # (Auto) 5.1 (1.4-5.7) K/uL Lymph # (Auto) 1.5 (0.6-2.4) K/uL Rooks # (Auto) 0.5 (0.0-0.8) K/uL Eos # (Auto) 0.2 (0.0-0.7) K/uL Baso # (Auto) 0.0 (0.0-0.1) K/uL INR 0.99 Sodium 138 (136-148) mmol/L Potassium 3.6 (3.5-5.1) mmol/L Chloride 100 (98-107) mmol/L Carbon Dioxide 21.4 (21.0-32.0) mmol/L BUN 11 (7.0-18.0) mg/dL Creatinine 0.9 (0.8-1.3) mg/dL Est Cr Clr Drug Dosing 131.73 mL/min Estimated GFR (MDRD) > 60.0 ml/min Glucose 153 H (74-106) mg/dL Calcium 8.4 L (8.5-10.1) mg/dL Magnesium 1.9 (1.8-2.4) mg/dL Total Bilirubin 0.5 (0.2-1.0) mg/dL AST 70 H (15-37) IU/L ALT 117 H (14-63) IU/L Alkaline Phosphatase 56 (46-116) U/L Creatine Kinase 70 (26-308) U/L Total Protein 7.5 (6.4-8.2) g/dL Albumin 3.5 (3.4-5.0) g/dL Globulin 4.0 (2.6-4.0) g/dL Albumin/Globulin Ratio 0.9 (0.9-1.6) Acetaminophen <2.0 ug/mL Meds: Medications Discontinued Medications Generic Name Dose Route Start Last Admin Trade Name Angela PRN Reason Stop Dose Admin Albuterol 1 gm 08/03/20 00:31 08/03/20 00:50 Ventolin Hfa INH 08/03/20 00:32 Not Given ONETIME STA Albuterol Confirm 08/03/20 00:42 08/03/20 00:53 Ventolin Hfa Administered 08/03/20 00:43 2 puff Dose Administration 8 gm INH .STK-MED ONE Albuterol 0 gm 08/03/20 00:46 08/03/20 00:48 Proventil Hfa INH 08/03/20 00:47 Not Given ONETIME ONE Albuterol 8 gm 08/03/20 00:49 08/03/20 00:50 Ventolin Hfa INH 08/03/20 00:50 Not Given ONETIME ONE Albuterol 8 gm 08/03/20 00:52 Ventolin Hfa INH Q4H PRN Shortness of Breath Lactated Ringer's 1,000 mls @ 999 mls/hr 08/03/20 00:45 08/03/20 00:46 Ringers, Lactated IV 999 mls/hr ASDIRECTED WESTON Administration Departure - Departure Time of Disposition: 02:09 Disposition: Home, Self-Care 01 Condition: Fair Clinical Impression: COVID-19, Acute asthma Pneumonia Qualifiers: Pneumonia type: due to unspecified organism Laterality: right Lung location: unspecified part of lung Qualified Code(s): J18.9 - Pneumonia, unspecified organism - Discharge Information *PRESCRIPTION DRUG MONITORING PROGRAM REVIEWED*: No *COPY OF PRESCRIPTION DRUG MONITORING REPORT IN PATIENT JAVID: No Prescriptions: Albuterol [Proventil HFA] 200 puff INH Q4H #1 inhaler Instructions: Metered Dose Inhaler (No Spacer Used), 10 Things You Can Do to Manage Your COVID-19 Symptoms at Home - CDC, COVID-19: How to Protect Yourself and Others - CDC, COVID-19: Quarantine vs. Isolation - CDC, Community-Acquired Pneumonia, Adult, [id number] Referrals: PCP,None [Primary Care Provider] - Forms: ED Department Discharge Additional Instructions: Hoy fuiste evaluado de forma emergente. En neno momento, morel evaluacin no revel nada nuevo y parece que los antibiticos que le recetaron parecen estar funcionando segn lo prescrito. Los signos de morel infeccin parecen mejorar con morel recuento de glbulos blancos, que es un signo de que la infeccin est disminuyendo a la normalidad. Morel funcin renal tambin es normal. Morel radiografa mostr la neumona y Covid que estaban all antes. Pudimos verificar morel nivel de oxgeno mientras caminaba y era normal. Contino recomendando el uso de Tylenol de 500 mg a 1000 mg cada 6 horas y Motrin de 400 mg a 600 mg cada 6 horas para los gemma corporales y la fiebre. Le enviar romeo receta de albuterol que puede usar cada 4-6 horas para la dificultad para respirar. Le recomiendo que compre un monitor de oxgeno de venta kerri y quiero que controle morel oxgeno. Si por debajo del 92% mientras est sentado y permanece all, me gustara que regresara al departamento de emergencias. Discut que en neno momento hay otros tratamientos para Covid, sin embargo, no cumple con los criterios para recibir estos medicamentos de emergencia. Isrrael un seguimiento con morel mdico de atencin primaria dentro de 2 a 3 solis y regrese al departamento de emergencias si tiene algn sntoma que empeora kosta se indic anteriormente. Por favor use: Tylenol 500-1000 mg cada 6 horas (NO TOME MS DE 4000 mg en 1 da) Ibuprofeno 400 mg cada 6 horas (lara con comida ya que puede causar lceras, malestar gastrointestinal) Programa de ejemplo: 8:00 a. M. (Tylenol 500-1000 mg) 11:00 AM (Ibuprofeno 400 mg) 2:00 p. M. (Tylenol 500-1000 mg) 5:00 p. M. (Ibuprofeno 400 mg) The patient is informed of any results of their evaluation and diagnostic workup and all questions are answered. They are given discharge instructions and return precautions. The patient is stable for discharge. The patient states they understand and agree with the plan and that they will return if their symptoms get worse or if they have any new concerns. The following information is given to patients seen in the emergency department who are being discharged to home. This information is to outline your options for follow-up care. We provide all patients seen in our emergency department with a follow-up referral. The need for follow-up, as well as the timing and circumstances, are variable depending upon the specifics of your emergency department visit. If you don't have a primary care physician on staff, we will provide you with a referral. We always advise you to contact your personal physician following an emergency department visit to inform them of the circumstance of the visit and for follow-up with them and/or the need for any referrals to a consulting lisa poonst. The emergency department will also refer you to a specialist when appropriate. This referral assures that you have the opportunity for follow-up care with a specialist. All of these measure are taken in an effort to provide you with optimal care, which includes your follow-up. Under all circumstances we always encourage you to contact your private physician who remains a resource for coordinating your care. When calling for follow-up care, please make the office aware that this follow-up is from your recent emergency room visit. If for any reason you are refused follow-up, please contact the [facility] Emergency Department at and asked to speak to the emergency department charge nurse. Sepsis Event Note (ED) - Evaluation Sepsis Screening Result: Possible Sepsis Risk
== END 2020-08-03 02:18 | disposition home or self-care (01) ==
LOC: MW.ED 23:52
DX: U07.1 COVID-19 (principal); J12.82 Pneumonia due to coronavirus disease 2019; J45.909 Unspecified asthma, uncomplicated; R00.0 Tachycardia, unspecified; Z79.899 Other long term (current) drug therapy
CPT/HCPCS: 36415; 71045; 80053; 80143; 82550; 83735; 85025; 85610; 99285; A9270; J7120; 99283; J3535-GY

== ENCOUNTER 2021-01-19 23:32 | Emergency (ER) | payer OTHER ==
[2021-01-20] MEDS ORDERED: Diphtheria,Pertussis(Acell),Tetanus Vaccine 0.5 ML Syringe IM ONE (00:28)
--- NOTE | 2021-01-20 01:04 | EDM.PDOC ---
ED HPI GENERAL MEDICAL PROBLEM - General Chief Complaint: Laceration Stated Complaint: LT HAND FINGER LACERATION Time Seen by Provider: 01/20/21 00:20 - History of Present Illness INITIAL COMMENTS - FREE TEXT/NARRATIVE: HISTORY AND PHYSICAL: History of present illness: This is a 31-year-old gentleman who presents ER today secondary to laceration to his second and third digits of his left hand that occurred at work. Patient r eports that he sliced his fingers against a sharp metal object on the table that was contaminated with food. Patient reports he has no deficits in movement of his fingers. Patient reports he was able to control the bleeding with pressure. Patient's tetanus status is not up-to-date. Review of systems: As per history of present illness and below otherwise all systems reviewed and negative. Past medical history: As per history of present illness and as reviewed below otherwise noncontributory. Surgical history: As per history of present illness and as reviewed below otherwise noncontribu tory. Social history: No reported history of drug abuse. Family history: As per history of present illness and as reviewed below otherwise noncontributory. Physical exam: This patient was seen and evaluated during the 2019 SARS-CoV-2 novel coronavirus pandemic period. Community viral transmission is ongoing at time of this encounter and the emergency department is operating under pandemic response procedures. Constitutional: Patient is oriented to person, place, and time. Appears well- developed and well-nourished. No distress. HEENT: Moist mucous membranes Head: Normocephalic and atraumatic Eyes: Right eye exhibits no discharge. Left eye exhibits no discharge. No scleral icterus Neck: Normal range of motion. No tracheal deviation present. Cardiovascular: Normal rate and regular rhythm. Pulmonary: Effort normal, no respiratory distress. Abdominal: No distention Musculoskeletal: Normal range of motion Neurologic: Alert and oriented to person, place and time. Skin: [place], warm and dry. Psychiatric: Normal mood and affect. Behavior is normal. Judgment and thought content normal. Nursing note and vital signs have been reviewed Patient's ER physical exam is significant for a 3 cm laceration over the medial aspect of his left middle finger over the middle phalanx and a 3 cm laceration over the medial aspect of his left index finger over the medial phalanx. Diagnostics: [] Therapeutics: [] Assessment and plan: 31-year-old gentleman who presents ER today secondary to laceration to his left index and ring fingers while at work. Patient is neurovascular intact. Wound was anesthetized with 3 cc of 1% lidocaine and irrigated and cleansed prior to suturing. Wound was sutured with a total of 8 five-point 0 Ethilon simple interrupted sutures. Patient will need a wound check in 2 days and suture removal in 7 to 10 days. Patient be placed in aluminum foam splint x2 to assist with healing. Patient will need to keep the splint on for 7 days. This will benefit the patient as the sutures are at the joint and this will assist with immobilization to improve healing and outcome. Reassessment at the time of disposition demonstrates that the patient is in no acute distress. The patient has remained stable throughout the entire ED visit and is without objective evidence for acute process requiring urgent intervention or hospitalization. The patient is stable for discharge, counseling is provided as documented above, discussed symptomatic treatment and specific conditions for return. I have spoken with the patient/caregiver and discussed todays findings, in addition to providing specific details for the plan of care. Questions are answered and there is agreement with the plan. Definitive disposition and diagnosis as appropriate pending reevaluation and review of above. left index/middle fingers Pain Score (Numeric/FACES): 4 - Related Data Allergies Allergy/AdvReac Type Severity Reaction Status Date / Time No Known Allergies Allergy Verified 01/19/21 23:56 Home Meds: Home Meds Albuterol [Ventolin HFA] 2 puff IH Q4HR PRN 5 Days #1 inhaler 07/05/19 [Rx] Albuterol Sulfate [Albuterol Sulfate HFA] 8.5 gm INH Q6H PRN #1 inhaler 07/21/20 [Rx] Ibuprofen 600 mg PO Q6HR PRN #30 tablet 07/21/20 [Rx] Past Medical History - Past Health History Medical/Surgical History: Denies Medical/Surgical History Respiratory History: Reports: Asthma - Infectious Disease History Infectious Disease History: Reports: Measles, Novel Coronavirus Social & Family History - Family History Family Medical History: No Pertinent Family History - Tobacco Use Tobacco Use Status *Q: Former Tobacco User Used Tobacco, but Quit: Yes Month/Year Tobacco Last Used: 2019 - Caffeine Use Caffeine Use: Reports: None - Recreational Drug Use Recreational Drug Use: No ED ROS GENERAL - Review of Systems Review Of Systems: See Below ED EXAM, SKIN/RASH Exam: See Below ED SKIN PROCEDURES - Laceration/Wound Repair Digit - 3rd (Middle) Appearance: Subcutaneous, Linear, Clean Distal NVT: Neuro & Vascular Intact Anesthetic Type: Local Local Anesthesia - Lidocaine (Xylocaine): 1% Plain Local Anesthetic Volume: 2cc Skin Prep: Saline Exploration/Debridement/Repair: Wound Explored Closed with: Sutures Lac/Wound length In cm: 3 Suture Size: 5-0 # of Sutures: 5 Suture Type: Nylon, Interrupted, Simple Digit - 2nd (Index) Appearance: Subcutaneous Distal NVT: Neuro & Vascular Intact Anesthetic Type: Local Local Anesthesia - Lidocaine (Xylocaine): 1% Plain Local Anesthetic Volume: 1cc Skin Prep: Saline Closed with: Sutures Lac/Wound length In cm: 2 Suture Size: 5-0 # of Sutures: 3 Suture Type: Nylon, Interrupted, Simple Course - Vital Signs Last Recorded V/S: Last Vital Signs Temp 98.0 F 01/19/21 23:56 Pulse 99 01/19/21 23:56 Resp 16 01/19/21 23:56 BP 145/84 H 01/19/21 23:56 Pulse Ox 97 01/19/21 23:56 - Orders/Labs/Meds Orders: Active Orders 24 hr Category Date Time Status Vaccines to be Administered [RC] PER UNIT ROUTINE Care 01/20/21 00:28 Active Meds: Medications Discontinued Medications Generic Name Dose Route Start Last Admin Trade Name Freq PRN Reason Stop Dose Admin Diphtheria/Tetanus/Acell Pertussis 0.5 ml 01/20/21 00:28 Diphtheria,Pertussis(Acell),Tetanus Vaccine 0.5 Ml Syringe IM 01/20/21 00:29 .ONCE ONE Lidocaine HCl 10 ml 01/20/21 00:28 01/20/21 00:37 Lidocaine 1% 5 Ml Sdv INJECT 01/20/21 00:29 10 ml ONETIME ONE Administration Lidocaine HCl Confirm 01/20/21 00:29 01/20/21 00:37 Lidocaine 1% 5 Ml Sdv Administered 01/20/21 00:30 Not Given Dose 5 ml .ROUTE .STK-MED ONE Departure - Departure Time of Disposition: 01:03 Disposition: Home, Self-Care 01 Condition: Good Clinical Impression: Finger laceration - Discharge Information Instructions: Laceration Care, Adult Referrals: PCP,None [Primary Care Provider] - Additional Instructions: Your seen and evaluated in the ER today secondary to a laceration to your second and third fingers. You had a total of 8 sutures placed. You will need a wound check in 2 days for any signs or symptoms of infection. Your sutures will need to be removed in 7 to 10 days. You will have finger splints applied to protect the wounds and to prevent you from bending your joints which might tear the sutures. [facility] [address] [place] [address] The following information is given to patients seen in the emergency department who are being discharged to home. This information is to outline your options for follow-up care. We provide all patients seen in our emergency department with a follow-up referral. The need for follow-up, as well as the timing and circumstances, are variable depending upon the specifics of your emergency department visit. If you don't have a primary care physician on staff, we will provide you with a referral. We always advise you to contact your personal physician following an emergency department visit to inform them of the circumstance of the visit and for follow-up with them and/or the need for any referrals to a consulting specialist. The emergency department will also refer you to a specialist when appropriate. This referral assures that you have the opportunity for follow-up care with a specialist. All of these measure are taken in an effort to provide you with optimal care, which includes your follow-up. Under all circumstances we always encourage you to contact your private physician who remains a resource for coordinating your care. When calling for follow-up care, please make the office aware that this follow-up is from your recent emergency room visit. If for any reason you are refused follow-up, please contact the [facility] Emergency Department at and asked to speak to the emergency department charge nurse. [facility] [address] [place] [id number] [facility] [address] [place] [address] Sepsis Event Note (ED) - Focused Exam Vital Signs: Vital Signs Temp Pulse Resp BP Pulse Ox 01/19/21 23:56 98.0 F 99 16 145/84 H 97 - My Orders Last 24 Hours: My Active Orders 01/20/21 00:28 Vaccines to be Administered [RC] PER UNIT ROUTINE - Assessment/Plan Last 24 Hours: My Active Orders 01/20/21 00:28 Vaccines to be Administered [RC] PER UNIT ROUTINE
== END 2021-01-20 01:36 | disposition home or self-care (01) ==
LOC: MW.ED 23:32
DX: S61.211A Laceration without foreign body of left index finger without damage to nail, initial encounter (principal); S61.213A Laceration without foreign body of left middle finger without damage to nail, initial encounter; J45.909 Unspecified asthma, uncomplicated; Z23 Encounter for immunization; Z87.891 Personal history of nicotine dependence; Z86.16 Personal history of COVID-19; Z79.899 Other long term (current) drug therapy; W26.8XXA Contact with other sharp object(s), not elsewhere classified, initial encounter; Y92.89 Other specified places as the place of occurrence of the external cause; Y99.0 Civilian activity done for income or pay
CPT/HCPCS: 12002; 90471; 90715; 99282; 99282-25

== ENCOUNTER 2021-04-27 23:51 | Emergency (ER) | payer SELFPAY ==
[2021-04-28] MEDS ORDERED: Albuterol/Ipratropium 3.0-0.5 MG/3 ML Neb Soln NEB ONE ×2 (00:18→01:23)
[2021-04-28] MEDS ORDERED: methylPREDNISolone Sodium Succinate 125 MG/2 ML SDV IVPUSH ONE (00:19)
[2021-04-28] MEDS ORDERED: Sodium Chloride 0.9% 2.5 ML Syringe FLUSH PRN (00:19)
[2021-04-28] MEDS ORDERED: Sodium Chloride 0.9% 10 ML Syringe FLUSH PRN (00:19)
[2021-04-28] MEDS ORDERED: Sodium Chloride 0.9% 1,000 ML IV ONE (00:20)
--- NOTE | 2021-04-28 00:22 | EDM.PDOC ---
ED HPI GENERAL MEDICAL PROBLEM - General Chief Complaint: Respiratory Problem Stated Complaint: BACK PAIN Time Seen by Provider: 04/27/21 23:57 - History of Present Illness INITIAL COMMENTS - FREE TEXT/NARRATIVE: History of present illness: [] Patient with a history of asthma history to 3 days been getting worse and is inhaler with spacer is not working. He has feverish feeling and headache. He is coughing but does not have any good sputum production. Patient short of breath with exertion. He feels like he is having an asthma exacerbation. He has had frequent asthma exacerbations and been in the hospital many times. He has never been intubated. He has been on steroids but not for the last few months. Patient has had the Materna vaccine series. This patient was seen and evaluated during the 2019 SARS-CoV-2 novel coronavirus pandemic period. Community viral transmission is ongoing at time of this encounter and the emergency department is operating under pandemic response procedures. Review of systems: As per history of present illness and below otherwise all systems reviewed and negative. Past medical history: As per history of present illness and as reviewed below otherwise noncontributory. Surgical history: As per history of present illness and as reviewed below otherwise noncontributory. Social history: No reported history of drug or alcohol abuse. Family history: As per history of present illness and as reviewed below otherwise noncontributory. Physical exam: Constitutional - well developed, well-nourished and in no acute distress HEENT - normocephalic, no evidence of trauma - external nose and mouth normal - no mass in neck and no JVD - mucosae moist EYES - full EOM, PERRL, no icterus - no evidence of inflammation, injection, or drainage Respiratory -minimal respiratory distress, equal bilateral expansion, lungs diminished breath sounds with wheezes throughout. Patient has prolonged expiratory phase of respiration. Cardiovascular - Regular Rhythm with S1 and S2 appreciated and no murmur, gallop or rub. GI - abdomen soft without distension or organomegaly - normal bowel sounds - no guard or rebound Musculoskeletal no gross deformity of long bones or joints - no tenderness, swelling or edema Neurologic - Alert and oriented times four - CN II-XII grossly intact - motor sensory and coordination symmetrically normal Psychiatric - appropriate mood and affect with normal thought content Hematologic - No petechiae or purpura - mucosa appropriate color and sclera not pale - normal nail bed color and refill Integument - no rash or evidence of trauma - normal turgor Diagnostics: [] Therapeutics: [] Impression: [] Plan: [] Definitive disposition and diagnosis as appropriate pending reevaluation and review of above. Upper Back Pain Score (Numeric/FACES): 6 - Related Data Allergies Allergy/AdvReac Type Severity Reaction Status Date / Time No Known Allergies Allergy Verified 01/19/21 23:56 Home Meds: Home Meds Albuterol [Ventolin HFA] 2 puff IH Q4HR PRN 5 Days #1 inhaler 07/05/19 [Rx] Albuterol Sulfate [Albuterol Sulfate HFA] 8.5 gm INH Q6H PRN #1 inhaler 07/21/20 [Rx] Ibuprofen 600 mg PO Q6HR PRN #30 tablet 07/21/20 [Rx] predniSONE [Prednisone] 60 mg PO DAILY #21 tablet 04/28/21 [Rx] Past Medical History - Past Health History Medical/Surgical History: Denies Medical/Surgical History Respiratory History: Reports: Asthma - Infectious Disease History Infectious Disease History: Reports: Measles, Novel Coronavirus Social & Family History - Family History Family Medical History: No Pertinent Family History - Tobacco Use Tobacco Use Status *Q: Never Tobacco User Second Hand Smoke Exposure: No - Caffeine Use Caffeine Use: Reports: Soda - Recreational Drug Use Recreational Drug Use: No ED ROS GENERAL - Review of Systems Review Of Systems: Comprehensive ROS is negative, except as noted in HPI. ED EXAM, GENERAL - Physical Exam Exam: See Below Free Text/Narrative:: My physical exam is in the HPI Course - Vital Signs Last Recorded V/S: Last Vital Signs Temp 36.2 C 04/28/21 00:03 Pulse 103 H 04/28/21 01:14 Resp 19 04/28/21 01:14 BP 131/68 04/28/21 00:03 Pulse Ox 95 04/28/21 01:14 - Orders/Labs/Meds Orders: Active Orders 24 hr Category Date Time Status RT Aerosol Therapy [RC] ASDIRECTED Care 04/28/21 00:18 Active RT Aerosol Therapy [RC] ASDIRECTED Care 04/28/21 01:23 Ordered Albuterol/Ipratropium [DuoNeb 3.0-0.5 MG/3 ML] Med 04/28/21 01:23 Once 3 ml NEB ONETIME ONE Sodium Chloride 0.9% [Saline Flush] Med 04/28/21 00:19 Active 10 ml FLUSH ASDIRECTED PRN Sodium Chloride 0.9% [Saline Flush] Med 04/28/21 00:19 Active 2.5 ml FLUSH ASDIRECTED PRN Saline Lock Insert [OM.PC] Stat Oth 04/28/21 00:19 Ordered Medication Orders Sodium Chloride (Sodium Chloride 0.9% 10 Ml Syringe) 10 ml FLUSH ASDIRECTED PRN PRN Reason: Keep Vein Open Sodium Chloride (Sodium Chloride 0.9% 2.5 Ml Syringe) 2.5 ml FLUSH ASDIRECTED PRN PRN Reason: Keep Vein Open Labs: Laboratory Tests 04/28/21 04/28/21 04/28/21 Range/Units 00:24 00:29 00:29 WBC 19.20 H (4.0-11.0) K/uL RBC 5.69 (4.50-5.90) M/uL Hgb 16.8 (13.0-17.0) g/dL Hct 48.2 (38.0-50.0) % MCV 84.7 (80.0-98.0) fL MCH 29.5 (27.0-32.0) pg MCHC 34.9 (31.0-37.0) g/dL RDW Std Deviation 39.2 (28.0-62.0) fl RDW Coeff of Yamilet 13 (11.0-15.0) % Plt Count 342 (150-400) K/uL MPV 9.20 (7.40-12.00) fL Neut % (Auto) 68.1 (48.0-80.0) % Lymph % (Auto) 18.3 (16.0-40.0) % [place] % (Auto) 5.5 (0.0-15.0) % Eos % (Auto) 7.6 H (0.0-7.0) % Baso % (Auto) 0.5 (0.0-1.5) % Neut # (Auto) 13.1 H (1.4-5.7) K/uL Lymph # (Auto) 3.5 H (0.6-2.4) K/uL [place] # (Auto) 1.1 H (0.0-0.8) K/uL Eos # (Auto) 1.5 H (0.0-0.7) K/uL Baso # (Auto) 0.1 (0.0-0.1) K/uL Sodium 143 (136-148) mmol/L Potassium 3.7 (3.5-5.1) mmol/L Chloride 104 (98-107) mmol/L Carbon Dioxide 24.0 (21.0-32.0) mmol/L BUN 15 (7.0-18.0) mg/dL Creatinine 0.9 (0.8-1.3) mg/dL Est Cr Clr Drug Dosing 115.06 mL/min Estimated GFR (MDRD) > 60.0 ml/min Glucose 104 (74-106) mg/dL Calcium 9.2 (8.5-10.1) mg/dL Total Bilirubin 0.7 (0.2-1.0) mg/dL AST 19 (15-37) IU/L ALT 55 (14-63) IU/L Alkaline Phosphatase 84 (46-116) U/L Total Protein 8.5 H (6.4-8.2) g/dL Albumin 4.0 (3.4-5.0) g/dL Globulin 4.5 H (2.6-4.0) g/dL Albumin/Globulin Ratio 0.9 (0.9-1.6) Influenza Type A RNA NEGATIVE (NEGATIVE) Influenza Type B RNA NEGATIVE (NEGATIVE) SARS-CoV-2 RNA (SISI) NEGATIVE (NEGATIVE) Meds: Medications Generic Name Dose Route Start Last Admin Trade Name Freq PRN Reason Stop Dose Admin Sodium Chloride 10 ml 04/28/21 00:19 Sodium Chloride 0.9% 10 Ml Syringe FLUSH ASDIRECTED PRN Keep Vein Open Sodium Chloride 2.5 ml 04/28/21 00:19 Sodium Chloride 0.9% 2.5 Ml Syringe FLUSH ASDIRECTED PRN Keep Vein Open Discontinued Medications Generic Name Dose Route Start Last Admin Trade Name Freq PRN Reason Stop Dose Admin Albuterol/Ipratropium 3 ml 04/28/21 00:18 04/28/21 00:27 Albuterol/Ipratropium 3.0-0.5 Mg/3 Ml Neb Soln NEB 04/28/21 00:19 3 ml ONETIME ONE Administration Sodium Chloride 1,000 mls @ 1,000 mls/hr 04/28/21 00:20 04/28/21 00:29 Normal Saline IV 04/28/21 01:19 1,000 mls/hr .Bolus ONE Administration Ketorolac Tromethamine 15 mg 04/28/21 01:07 04/28/21 01:12 Ketorolac 30 Mg/Ml Sdv IVPUSH 04/28/21 01:08 15 mg ONETIME ONE Administration Methylprednisolone Sodium Succinate 125 mg 04/28/21 00:19 04/28/21 00:30 Methylprednisolone Sodium Succinate 125 Mg/2 Ml Sdv IVPUSH 04/28/21 00:20 125 mg ONETIME ONE Administration - Re-Assessments/Exams Free Text/Narrative Re-Assessment/Exam: 04/28/21 01:23 Patient feels better. Tolerates activity. Oxygen saturation good on room air. Still tight sounding. Plan 1 more nebulizer treatment and discharged on steroids. Departure - Departure Time of Disposition: 01:45 Disposition: Home, Self-Care 01 Condition: Good Clinical Impression: Acute bronchitis, Asthma exacerbation - Discharge Information Instructions: Acute Bronchitis, Adult, [id number], Asthma Attack Referrals: PCP,None [Primary Care Provider] - Forms: ED Department Discharge Additional Instructions: Increase fluids. A prescription was sent to [facility] which is open 05-[address] [facility] [address] [place] [address] [place] [address] The following information is given to patients seen in the emergency department who are being discharged to home. This information is to outline your options for follow-up care. We provide all patients seen in our emergency department with a follow-up referral. The need for follow-up, as well as the timing and circumstances, are variable depending upon the specifics of your emergency department visit. If you don't have a primary care physician on staff, we will provide you with a referral. We always advise you to contact your personal physician following an emergency department visit to inform them of the circumstance of the visit and for follow-up with them and/or the need for any referrals to a consulting specialist. The emergency department will also refer you to a specialist when appropriate. This referral assures that you have the opportunity for follow-up care with a specialist. All of these measure are taken in an effort to provide you with optimal care, which includes your follow-up. Under all circumstances we always encourage you to contact your private physician who remains a resource for coordinating your care. When calling for follow-up care, please make the office aware that this follow-up is from your recent emergency room visit. If for any reason you are refused follow-up, please contact the [facility] Emergency Department at and asked to speak to the emergency department charge nurse. Sepsis Event Note (ED) - Focused Exam Vital Signs: Vital Signs Temp Pulse Resp BP Pulse Ox 04/28/21 01:14 103 H 19 95 04/28/21 00:03 36.2 C 122 H 20 131/68 93 L - My Orders Last 24 Hours: My Active Orders 04/28/21 00:18 RT Aerosol Therapy [RC] ASDIRECTED 04/28/21 00:19 Sodium Chloride 0.9% [Saline Flush] 10 ml FLUSH ASDIRECTED PRN Sodium Chloride 0.9% [Saline Flush] 2.5 ml FLUSH ASDIRECTED PRN Saline Lock Insert [OM.PC] Stat 04/28/21 01:23 RT Aerosol Therapy [RC] ASDIRECTED Albuterol/Ipratropium [DuoNeb 3.0-0.5 MG/3 ML] 3 ml NEB ONETIME ONE - Assessment/Plan Last 24 Hours: My Active Orders 04/28/21 00:18 RT Aerosol Therapy [RC] ASDIRECTED 04/28/21 00:19 Sodium Chloride 0.9% [Saline Flush] 10 ml FLUSH ASDIRECTED PRN Sodium Chloride 0.9% [Saline Flush] 2.5 ml FLUSH ASDIRECTED PRN Saline Lock Insert [OM.PC] Stat 04/28/21 01:23 RT Aerosol Therapy [RC] ASDIRECTED Albuterol/Ipratropium [DuoNeb 3.0-0.5 MG/3 ML] 3 ml NEB ONETIME ONE
--- NOTE | 2021-04-28 00:46 | CR ---
INDICATION: Shortness of breath TECHNIQUE: Chest radiograph 1 view COMPARISON: 08/03/2020 FINDINGS: The sensitivity and specificity of the exam are moderately limited by the patient`s body habitus. Mediastinum: The mediastinum is normal in appearance. The heart silhouette is normal in size and morphology. Lung: Minimal right basilar atelectasis is noted. No sign of pleural effusion seen. No pneumothorax is identified. Bone and Soft tissue: Unremarkable for age. IMPRESSION: 1. Minimal right basilar atelectasis is noted. Dictated by Ashkan Kay MD @ 04/28/2021 12:45:35 AM Dictated by: Ashkan Kay MD @ 04/28/2021 00:45:37 (Electronically Signed)
[2021-04-28 00:58] LABS: BLOOD UREA NITROGEN,BUN 15 mg/dL (7.0-18.0); CHLORIDE,CL 104 mmol/L (98-107); GLUCOSE RANDOM 104 mg/dL (74-106); POTASSIUM,K 3.7 mmol/L (3.5-5.1); SODIUM,NA 143 mmol/L (136-148)
[2021-04-28 01:04] LABS: CORONAVIRUS COVID-19 NAA NEGATIVE (NEGATIVE); INFLUENZA A NAA NEGATIVE (NEGATIVE); INFLUENZA B NAA NEGATIVE (NEGATIVE)
[2021-04-28] MEDS ORDERED: Ketorolac 30 MG/ML SDV IVPUSH ONE (01:07)
== END 2021-04-28 02:03 | disposition home or self-care (01) ==
LOC: MW.ED 23:51
DX: J20.9 Acute bronchitis, unspecified (principal); J45.901 Unspecified asthma with (acute) exacerbation; Z20.822 Contact with and (suspected) exposure to COVID-19; Z79.899 Other long term (current) drug therapy
CPT/HCPCS: 0240U; 36415; 71045; 80053; 85025; 94640; 96374; 96375; 99285; J1885; J2930; J7030; J7620-GY

== ENCOUNTER 2021-06-10 05:44 | Emergency (ER) | payer SELFPAY ==
[2021-06-10] MEDS ORDERED: methylPREDNISolone Sodium Succinate 125 MG/2 ML SDV IVPUSH ONE (05:56)
[2021-06-10] MEDS ORDERED: Albuterol/Ipratropium 3.0-0.5 MG/3 ML Neb Soln NEB ONE ×2 (05:56→05:57)
--- NOTE | 2021-06-10 06:01 | EDM.PDOC ---
ED HPI GENERAL MEDICAL PROBLEM - General Chief Complaint: Respiratory Problem Stated Complaint: ASTHMA Time Seen by Provider: 06/10/21 05:45 Source of Information: Reports: Patient History Limitations: Reports: No Limitations - History of Present Illness INITIAL COMMENTS - FREE TEXT/NARRATIVE: 31-year-old male past medical history of asthma presents for shortness of breath and wheezing. Patient states that symptoms began about 5 days ago. He has been taking prednisone as well as using a Ventolin inhaler without relief of symptoms. He notes subjective fever a few days ago which is since gone away. He notes a mostly nonproductive cough. He denies tobacco use, states that he used to be a smoker but has since quit. He notes a history of COVID-19 infection last year and is fully vaccinated. back area Pain Score (Numeric/FACES): 5 - Related Data Allergies Allergy/AdvReac Type Severity Reaction Status Date / Time No Known Allergies Allergy Verified 06/10/21 05:53 Home Meds: Home Meds Albuterol [Ventolin HFA] 2 puff IH Q4HR PRN 5 Days #1 inhaler 07/05/19 [Rx] Albuterol Sulfate [Albuterol Sulfate HFA] 8.5 gm INH Q6H PRN #1 inhaler 07/21/20 [Rx] Ibuprofen 600 mg PO Q6HR PRN #30 tablet 07/21/20 [Rx] predniSONE [Prednisone] 60 mg PO DAILY #21 tablet 04/28/21 [Rx] Albuterol Sulfate 2.5 mg IH Q4H PRN #30 vial 06/10/21 [Rx] Azithromycin 250 mg PO DAILY 5 Days #6 tablet 06/10/21 [Rx] predniSONE 60 mg PO DAILY 5 Days #15 tab 06/10/21 [Rx] Past Medical History - Past Health History Medical/Surgical History: Denies Medical/Surgical History HEENT History: Reports: None Cardiovascular History: Reports: None Respiratory History: Reports: Asthma Genitourinary History: Reports: None Musculoskeletal History: Reports: None Neurological History: Reports: None Psychiatric History: Reports: None Endocrine/Metabolic History: Reports: None Insulin Pump Model and Java Consultant: N/A Hematologic History: Reports: None Immunologic History: Reports: None Oncologic (Cancer) History: Reports: None Dermatologic History: Reports: None - Infectious Disease History Infectious Disease History: Reports: Measles, Novel Coronavirus - Past Surgical History Head Surgeries/Procedures: Reports: None Social & Family History - Family History Family Medical History: No Pertinent Family History - Tobacco Use Tobacco Use Comment: states stop 2yrs ago - Caffeine Use Caffeine Use: Reports: None - Recreational Drug Use Recreational Drug Use: No ED ROS GENERAL - Review of Systems Review Of Systems: Comprehensive ROS is negative, except as noted in HPI. ED EXAM, GENERAL - Physical Exam Exam: See Below Exam Limited By: No Limitations General Appearance: Alert, WD/WN, No Apparent Distress Ears: Hearing Grossly Normal Throat/Mouth: Normal Voice, No Airway Compromise Head: Atraumatic, Normocephalic Neck: Normal Inspection Respiratory/Chest: No Respiratory Distress, Other (Bilateral inspiratory and expiratory wheezing with good air entry, speaking in full sentences, coughs with deep inspiration) Cardiovascular: Normal Peripheral Pulses, Regular Rate, Rhythm Extremities: Normal Inspection Neurological: Alert, Normal Cognition, Normal Gait Psychiatric: Normal Affect, Normal Mood Skin Exam: Warm, Dry, Intact, Normal Color Course - Vital Signs Last Recorded V/S: Last Vital Signs Temp 96.8 F L 06/10/21 05:50 Pulse 92 06/10/21 05:50 Resp 20 06/10/21 05:50 BP 131/87 06/10/21 05:50 Pulse Ox 93 L 06/10/21 05:50 - Orders/Labs/Meds Orders: Active Orders 24 hr Category Date Time Status Saline Lock Insert [OM.PC] Stat Oth 06/10/21 05:56 Ordered Labs: Laboratory Tests 06/10/21 06/10/21 06/10/21 Range/Units 05:47 06:09 06:09 WBC 17.06 H (4.0-11.0) K/uL RBC 5.40 (4.50-5.90) M/uL Hgb 16.4 (13.0-17.0) g/dL Hct 46.8 (38.0-50.0) % MCV 86.7 (80.0-98.0) fL MCH 30.4 (27.0-32.0) pg MCHC 35.0 (31.0-37.0) g/dL RDW Std Deviation 41.9 (28.0-62.0) fl RDW Coeff of Yamilet 13 (11.0-15.0) % Plt Count 316 (150-400) K/uL MPV 9.30 (7.40-12.00) fL Neut % (Auto) 55.8 (48.0-80.0) % Lymph % (Auto) 21.3 (16.0-40.0) % Henderson % (Auto) 6.4 (0.0-15.0) % Eos % (Auto) 16.2 H (0.0-7.0) % Baso % (Auto) 0.3 (0.0-1.5) % Neut # (Auto) 9.5 H (1.4-5.7) K/uL Lymph # (Auto) 3.6 H (0.6-2.4) K/uL Henderson # (Auto) 1.1 H (0.0-0.8) K/uL Eos # (Auto) 2.8 H (0.0-0.7) K/uL Baso # (Auto) 0.1 (0.0-0.1) K/uL Nucleated RBC % 0.0 /100WBC Nucleated RBCs # 0 K/uL Sodium 143 (136-148) mmol/L Potassium 3.8 (3.5-5.1) mmol/L Chloride 106 (98-107) mmol/L Carbon Dioxide 26.0 (21.0-32.0) mmol/L BUN 16 (7.0-18.0) mg/dL Creatinine 0.9 (0.8-1.3) mg/dL Est Cr Clr Drug Dosing 103.45 mL/min Estimated GFR (MDRD) > 60.0 ml/min Glucose 108 H (74-106) mg/dL Calcium 9.2 (8.5-10.1) mg/dL Magnesium 2.1 (1.8-2.4) mg/dL C-Reactive Protein 3.30 H (0.00-0.90) mg/dL Influenza Type A RNA NEGATIVE (NEGATIVE) Influenza Type B RNA NEGATIVE (NEGATIVE) SARS-CoV-2 RNA (SISI) NEGATIVE (NEGATIVE) Meds: Medications Discontinued Medications Generic Name Dose Route Start Last Admin Trade Name Freq PRN Reason Stop Dose Admin Albuterol/Ipratropium 3 ml 06/10/21 05:56 06/10/21 06:01 Albuterol/Ipratropium 3.0-0.5 Mg/3 Ml Neb Soln NEB 06/10/21 05:57 3 ml ONETIME ONE Administration Albuterol/Ipratropium 3 ml 06/10/21 05:57 06/10/21 06:01 Albuterol/Ipratropium 3.0-0.5 Mg/3 Ml Neb Soln NEB 06/10/21 05:58 3 ml ONETIME ONE Administration Methylprednisolone Sodium Succinate 125 mg 06/10/21 05:56 06/10/21 06:02 Methylprednisolone Sodium Succinate 125 Mg/2 Ml Sdv IVPUSH 06/10/21 05:57 125 mg ONETIME ONE Administration - Re-Assessments/Exams Free Text/Narrative Re-Assessment/Exam: 06/10/21 06:00 Patient symptoms are consistent with asthma exacerbation. Will get basic labs and chest x-ray. Patient may require admission given that he is already on outpatient steroids and is hypoxic to 89 to 92% during my history and physical. 06/10/21 06:40 Patient is feeling much better after DuoNeb treatments. Had a long discussion with patient regarding disposition. I did offer patient observation admission versus trial at home after adjusting medications. Will send patient home with 60 mg prednisone for the next 5 days, azithromycin x5 days for potential underlying atypical pneumonia, albuterol solution for his nebulizer machine. I did inform patient that if he is not feeling better despite these interventions he will definitely need to come back to the hospital considering he has already tried outpatient therapy. Patient understands. Departure - Departure Time of Disposition: 06:41 Disposition: Home, Self-Care 01 Condition: Good Clinical Impression: Asthma attack Qualifiers: Asthma severity: unspecified severity Asthma persistence: unspecified Qualified Code(s): J45.901 - Unspecified asthma with (acute) exacerbation - Discharge Information Prescriptions: Albuterol Sulfate 2.5 mg IH Q4H PRN #30 vial PRN Reason: Wheezing Azithromycin 250 mg PO DAILY 5 Days #6 tablet predniSONE 60 mg PO DAILY 5 Days #15 tab Instructions: Asthma, Adult, [id number] Forms: ED Department Discharge Additional Instructions: Your symptoms are suggestive of an asthma exacerbation. You improved after a breathing treatment in the emergency department. You also received a steroid injection. I sent medications to the [facility]. Please stop taking your previously prescribed prednisone. Please start taking the new prescription of prednisone starting tomorrow. The new prescription is a higher dose. I also sent an antibiotic called azithromycin that you should take for the next 5 days. I also sent solution for your nebulizer machine at home. You can use this every 4 hours as needed for wheezing. If you are needing to use it more than every 4 hours then you should return to the emergency department for reassessment. If you are not improving after 2 days of this new medication regimen then please come back to the emergency department. The following information is given to patients seen in the emergency department who are being discharged to home. This information is to outline your options for follow-up care. We provide all patients seen in our emergency department with a follow-up referral. The need for follow-up, as well as the timing and circumstances, are variable depending upon the specifics of your emergency department visit. If you don't have a primary care physician on staff, we will provide you with a referral. We always advise you to contact your personal physician following an emergency department visit to inform them of the circumstance of the visit and for follow-up with them and/or the need for any referrals to a consulting specialist. The emergency department will also refer you to a specialist when appropriate. This referral assures that you have the opportunity for follow-up care with a specialist. All of these measure are taken in an effort to provide you with optimal care, which includes your follow-up. Under all circumstances we always encourage you to contact your private physician who remains a resource for coordinating your care. When calling for follow-up care, please make the office aware that this follow-up is from your recent emergency room visit. If for any reason you are refused follow-up, please contact the [facility] Emergency Department at and asked to speak to the emergency department charge nurse. Please follow up with your primary care physician. If you do not have a primary care physician, see below: [facility] [address] [place] [id number] [facility] [address] [place] [address] [facility] [address] [place] [address] Sepsis Event Note (ED) - Evaluation Sepsis Screening Result: No Definite Risk - Focused Exam Vital Signs: Vital Signs Temp Pulse Resp BP Pulse Ox 06/10/21 05:50 96.8 F L 92 20 131/87 93 L - My Orders Last 24 Hours: My Active Orders 06/10/21 05:56 Saline Lock Insert [OM.PC] Stat - Assessment/Plan Last 24 Hours: My Active Orders 06/10/21 05:56 Saline Lock Insert [OM.PC] Stat
--- NOTE | 2021-06-10 06:14 | CR ---
Indication: Asthma, hypoxia, cough and wheeze Comparison: None available. Technique: Single AP view chest Findings: There is hyperinflation and chronic interstitial change. There is no focal consolidation, effusion, or pneumothorax. The cardiomediastinal silhouette is within normal limits. The bony thorax is grossly intact. Impression: There is hyperinflation and mild chronic interstitial change without evidence of dense consolidation. 5 Dictated by Fidencio Garzon MD @ 06/10/2021 6:12:21 AM (Electronically Signed)
[2021-06-10 06:28] LABS: CORONAVIRUS COVID-19 NAA NEGATIVE (NEGATIVE); INFLUENZA A NAA NEGATIVE (NEGATIVE); INFLUENZA B NAA NEGATIVE (NEGATIVE)
[2021-06-10 06:29] LABS: BLOOD UREA NITROGEN,BUN 16 mg/dL (7.0-18.0); CHLORIDE,CL 106 mmol/L (98-107); GLUCOSE RANDOM 108 mg/dL (74-106); POTASSIUM,K 3.8 mmol/L (3.5-5.1); SODIUM,NA 143 mmol/L (136-148)
== END 2021-06-10 06:52 | disposition home or self-care (01) ==
LOC: MW.ED 05:44
DX: J45.901 Unspecified asthma with (acute) exacerbation (principal); Z87.891 Personal history of nicotine dependence; Z79.899 Other long term (current) drug therapy; Z20.822 Contact with and (suspected) exposure to COVID-19
CPT/HCPCS: 0240U; 71045; 80048; 83735; 85025; 86140; 96374; 99285; J2930; J7620-GY